=== PATIENT | male | born 1960 | race African-American/Black ===

== ENCOUNTER 2018-03-03 00:23 | Emergency (ER) | payer BC, OTHER ==
[2018-03-03] MEDS ORDERED: KETOROLAC 30 MG/ML INJ ONE (01:02)
[2018-03-03] MEDS ORDERED: LIDOCAINE 1% 20 ML MDV ONE (01:31)
--- NOTE | 2018-03-03 03:23 | EDPHYS ---
Physician Documentation [facility] Name: Milo Lynn Age: 57 yrs Sex: Male : 1960 Arrival Date: 03/03/2018 Time: 00:25 Bed 6 Private MD: ED Physician Greg Hidalgo HPI: 03/03 00:42 This 57 yrs old Black Male presents to ER via Wheelchair with complaints of Laceration, tw4 Fall Injury. 00:42 Details of fall: The patient fell from a height, truck. Onset: The symptoms/episode tw4 began/occurred just prior to arrival. Associated injuries: The patient sustained palmar aspect of middle phalanx of left ring finger and palmar aspect of middle phalanx of left middle finger, abrasion, laceration, 2 cm(s). Severity of symptoms: At their worst the symptoms were mild, in the emergency department the symptoms are unchanged. The patient has not experienced similar symptoms in the past. Historical: - Allergies: 00:43 No Known Allergies; lp1 - Home Meds: 00:43 Celebrex Oral [Active]; lp1 - PMHx: 00:43 None; lp1 - PSHx: 00:43 C4, 5, 6 fusion; lp1 - Immunization history:: Adult Immunizations up to date, Last tetanus immunization: up to date. - Social history:: Smoking status: Patient/guardian denies using tobacco. ROS: 00:42 Constitutional: Negative for fever, chills, and weight loss, Cardiovascular: Negative tw4 for chest pain, palpitations, and edema, Respiratory: Negative for shortness of breath, cough, wheezing, and pleuritic chest pain, Abdomen/GI: Negative for abdominal pain, nausea, vomiting, diarrhea, and constipation. 00:42 MS/extremity: Positive for injury or acute deformity, decreased range of motion, laceration. Exam: 00:42 Constitutional: This is a well developed, well nourished patient who is awake, alert, tw4 and in no acute distress. Head/Face: Normocephalic, atraumatic. Chest/axilla: Normal chest wall appearance and motion. Nontender with no deformity. No lesions are appreciated. Cardiovascular: Regular rate and rhythm with a normal S1 and S2. No gallops, murmurs, or rubs. Normal PMI, no JVD. No pulse deficits. Respiratory: Lungs have equal breath sounds bilaterally, clear to auscultation and percussion. No rales, rhonchi or wheezes noted. No increased work of breathing, no retractions or nasal flaring. Abdomen/GI: Soft, non-tender, with normal bowel sounds. No distension or tympany. No guarding or rebound. No evidence of tenderness throughout. 00:42 Back: pain, that is mild, of the right low back, ROM is decreased, with all movement, normal spinal alignment noted. Vital Signs: 00:41 BP 163 / 90; Pulse 76; Resp 18; Temp 98.1(TE); Pulse Ox 100% on R/A; Weight 102.06 kg; lp1 Height 6 ft. 2 in. (187.96 cm); Pain 8/10; 01:15 BP 139 / 79; Pulse 70; Resp 16; Pulse Ox 100% on R/A; lp1 02:16 BP 134 / 81; Pulse 63; Resp 18; Pulse Ox 100% on R/A; mg2 02:45 BP 143 / 87; Pulse 60; Resp 18; Pulse Ox 100% on R/A; lp1 00:41 Body Mass Index 28.89 (102.06 kg, 187.96 cm) lp1 Laceration: 03:26 Wound Repair of 3.0cm ( 1.2in ) subcutaneous laceration to palmar aspect of middle tw4 phalanx of left ring finger and palmar aspect of middle phalanx of left middle finger. Distal neuro/vascular/tendon intact. Anesthesia: Digital block administered with 1% lidocaine. Wound prep: Extensive cleansing. Skin closed with 4-0 Ethilon using interrupted sutures and sterile technique. Dressed with Bacitracin, 4x4's. Patient tolerated well. MDM: 00:27 Patient medically screened. tw4 03:26 Differential diagnosis: closed head injury, fracture, laceration, multiple trauma. Data tw4 reviewed: vital signs, nurses notes. Counseling: I had a detailed discussion with the patient and/or guardian regarding: the historical points, exam findings, and any diagnostic results supporting the discharge/admit diagnosis. Medication response: Toradol relieved patient's pain. The symptoms have resolved. Response to treatment: the patient's symptoms have markedly improved after treatment, and as a result, I will discharge patient. Special discussion: I discussed with the patient/guardian in detail that at this point there is no indication for admission to the hospital. It is understood, however, that if the symptoms persist or worsen the patient needs to return immediately for re-evaluation. 03/03 02:01 Order name: Lumbar Spine (3 Views) XRAY tw4 Administered Medications: 01:06 Drug: TORadol 60 mg Route: IM; Site: right gluteus; mg2 02:00 Follow up: Response: No adverse reaction lp1 02:10 Drug: Lidocaine (1 %) 1 vials Volume: 20 ml; Route: Infiltration; lp1 03:35 Drug: Clindamycin 300 mg Route: PO; lp1 03:42 Follow up: Response: Medication administered at discharge. lp1 Disposition: 03/03/18 03:22 Discharged to Home. Impression: Laceration of extensor muscle, fascia and tendon of left ring finger at forearm level, Laceration of extensor muscle, fascia and tendon of left middle finger at wrist and hand level, Contusion of left back wall of thorax. - Condition is Stable. - Discharge Instructions: Contusion, [id number], Back Pain, Adult, [id number], Laceration Care, Adult, Nhiu-to-[id number]. - Prescriptions for Cleocin 300 mg Oral Capsule - take 1 capsule by ORAL route every 6 hours for 10 days; 40 capsule. Ibuprofen 800 mg Oral Tablet - take 1 tablet by ORAL route every 8 hours As needed take with food; 30 tablet. - Medication Reconciliation Form, Thank You Letter, Antibiotic Education, Prescription Opioid Use form. - Follow up: Emergency Department; When: As needed; Reason: If symptoms return, Recheck today's complaints, Continuance of care, Re-evaluation by your physician. - Problem is new. - Symptoms have improved. Signatures: Dispatcher [employer] EDMS Jasmyne Polanco RN RN lp1 Greg Hidalgo MD MD tw4 Salvatore Roe RN RN mg2 Corrections: (The following items were deleted from the chart) 03:23 03:22 03/03/2018 03:22 Discharged to Home. Impression: Laceration of extensor muscle, tw4 fascia and tendon of left ring finger at forearm level; Laceration of extensor muscle, fascia and tendon of left middle finger at wrist and hand level. Condition is Stable. Forms are Medication Reconciliation Form, Thank You Letter, Antibiotic Education, Prescription Opioid Use. Follow up: Emergency Department; When: As needed; Reason: If symptoms return, Recheck today's complaints, Continuance of care, Re-evaluation by your physician. Problem is new. Symptoms have improved. tw4 03:43 03:23 03/03/2018 03:22 Discharged to Home. Impression: Laceration of extensor muscle, lp1 fascia and tendon of left ring finger at forearm level; Laceration of extensor muscle, fascia and tendon of left middle finger at wrist and hand level; Contusion of left back wall of thorax. Condition is Stable. Discharge Instructions: Contusion, Yytb-ox-Atoz, Back Pain, Adult, Sspg-gr-Oaal, Laceration Care, Adult, [id number]. Forms are Medication Reconciliation Form, Thank You Letter, Antibiotic Education, Prescription Opioid Use. Follow up: Emergency Department; When: As needed; Reason: If symptoms return, Recheck today's complaints, Continuance of care, Re-evaluation by your physician. Problem is new. Symptoms have improved. tw4
--- NOTE | 2018-03-03 03:23 | ER ---
Nurse's Notes [facility] Name: Milo Lynn Age: 57 yrs Sex: Male : 1960 Arrival Date: 03/03/2018 Time: 00:25 Bed 6 Private MD: Diagnosis: Laceration of extensor muscle, fascia and tendon of left ring finger at forearm level;Laceration of extensor muscle, fascia and tendon of left middle finger at wrist and hand level;Contusion of left back wall of thorax Presentation: 03/03 00:38 Presenting complaint: Patient states: Was helping move a fridge from back of truck, lp1 lost balance and fell backward, hitting back and head on concrete sidewalk, denies LOC; laceration to left middle finger, left 4th finger, pain to right mid back on breathing. Transition of care: patient was not received from another setting of care. Complicating Factors: There are no complicating factors for this patient. Onset of symptoms was March 02, 2018 at 23:30. Risk Assessment: Do you want to hurt yourself or someone else? Patient reports no desire to harm self or others. Initial Sepsis Screen: Does the patient meet any 2 criteria? No. Patient's initial sepsis screen is negative. Does the patient have a suspected source of infection? No. Patient's initial sepsis screen is negative. Care prior to arrival: None. 00:38 Method Of Arrival: Wheelchair lp1 00:38 Acuity: MARI 4 lp1 Historical: - Allergies: 00:43 No Known Allergies; lp1 - Home Meds: 00:43 Celebrex Oral [Active]; lp1 - PMHx: 00:43 None; lp1 - PSHx: 00:43 C4, 5, 6 fusion; lp1 - Immunization history:: Adult Immunizations up to date, Last tetanus immunization: up to date. - Social history:: Smoking status: Patient/guardian denies using tobacco. Screenin:46 Abuse screen: Denies threats or abuse. Denies injuries from another. Nutritional lp1 screening: No deficits noted. Tuberculosis screening: No symptoms or risk factors identified. Fall Risk None identified. Assessment: 00:43 General: Appears in no apparent distress. Behavior is appropriate for age. Pain: lp1 Complains of pain in right mid back, left ring finger, left middle finger and right elbow Pain currently is 8 out of 10 on a pain scale. Quality of pain is described as aching. Neuro: Level of Consciousness is awake, alert, obeys commands, Oriented to person, place, time, situation, Gait is steady, Pupils are PERRLA. Cardiovascular: Patient's skin is warm and dry. Respiratory: Respiratory effort is even, unlabored, Respiratory pattern is regular. GI: Abdomen is flat. : No signs and/or symptoms were reported regarding the genitourinary system. EENT: No signs and/or symptoms were reported regarding the EENT system. Derm: Skin is healthy with good turgor, Skin is dry, Skin is normal, Wound noted Wound is Abrasion to right elbow, lacerations to left middle finger, left ring finger. Musculoskeletal: Circulation, motion, and sensation intact. Injury Description: Laceration is contaminated, jagged, 0.5 to 2.5 cm long, not bleeding. 01:45 Reassessment: Patient appears in no apparent distress at this time. No changes from lp1 previously documented assessment. Patient and/or family updated on plan of care and expected duration. Pain level reassessed. Waiting for laceration repair. 02:45 Reassessment: Patient is alert, oriented x 3, equal unlabored respirations, skin lp1 warm/dry/pink. States pain to right mid back. Vital Signs: 00:41 BP 163 / 90; Pulse 76; Resp 18; Temp 98.1(TE); Pulse Ox 100% on R/A; Weight 102.06 kg; lp1 Height 6 ft. 2 in. (187.96 cm); Pain 8/10; 01:15 BP 139 / 79; Pulse 70; Resp 16; Pulse Ox 100% on R/A; lp1 02:16 BP 134 / 81; Pulse 63; Resp 18; Pulse Ox 100% on R/A; mg2 02:45 BP 143 / 87; Pulse 60; Resp 18; Pulse Ox 100% on R/A; lp1 00:41 Body Mass Index 28.89 (102.06 kg, 187.96 cm) lp1 ED Course: 00:25 Patient arrived in ED. ds1 00:27 Greg Hidalgo MD is Attending Physician. tw4 00:38 Jasmyne Polanco RN is Primary Nurse. lp1 00:41 Triage completed. lp1 00:41 Arm band placed on right wrist. lp1 00:47 Patient has correct armband on for positive identification. Placed in gown. Pulse ox lp1 on. NIBP on. 01:00 Wound care: to laceration located on left middle finger and left ring finger was lp1 cleaned with Hibiclens, irrigated with normal saline. 02:10 Assist provider with laceration repair on left ring finger and left middle finger that lp1 was 2.5 cm. or less using sutures. Set up tray. Performed by Greg Hidalgo MD. 02:12 Patient did not have IV access during this emergency room visit. lp1 03:03 Patient moved to radiology via wheelchair. kw 03:03 X-ray completed. Patient tolerated procedure well. kw 03:03 Patient moved back from radiology. kw 03:04 Radiology exam delayed due to pt getting stitches. kw 03:05 Lumbar Spine (3 Views) XRAY In Process Unspecified. EDMS Administered Medications: 01:06 Drug: TORadol 60 mg Route: IM; Site: right gluteus; mg2 02:00 Follow up: Response: No adverse reaction lp1 02:10 Drug: Lidocaine (1 %) 1 vials Volume: 20 ml; Route: Infiltration; lp1 03:35 Drug: Clindamycin 300 mg Route: PO; lp1 03:42 Follow up: Response: Medication administered at discharge. lp1 Outcome: 03:22 Discharge ordered by . tw4 03:43 Discharged to home ambulatory. lp1 03:43 Condition: good 03:43 Discharge instructions given to patient, Instructed on discharge instructions, follow up and referral plans. wound care, Demonstrated understanding of instructions, follow-up care, medications, Prescriptions given X 2. 03:43 Patient left the ED. lp1 Signatures: Dispatcher [employer] EDDC LyleJoleen ds1 Kelin Arevalo kw Jasmyne Polanco RN RN lp1 Greg Hidalgo MD MD tw4 Salvatore Roe RN RN mg2 Corrections: (The following items were deleted from the chart) 03:04 01:45 Reassessment: Patient appears in no apparent distress at this time. No changes lp1 from previously documented assessment. Patient and/or family updated on plan of care and expected duration. Pain level reassessed. lp1
[2018-03-03] MEDS ORDERED: CLINDAMYCIN HCL 150 MG CAP ONE (03:31)
--- NOTE | 2018-03-03 08:24 | RAD REPORT ---
EXAM DESCRIPTION: Lumbar Spine 3 Views CLINICAL HISTORY: Fall, back pain, radiculopathy. COMPARISON: 03/20/2016 FINDINGS: Vertebral body heights appear maintained. No compression fracture noted. Disc spaces are m aintained. Bridging osteophyte along the left noted at L2-3. Prominent facet hypertrophy is seen at L 4-5 and L5-S1. IMPRESSION: Prominent facet hypertrophy at L4-5 and L5-S1.
== END 2018-03-03 03:43 | disposition home or self-care (01) ==
LOC: ER 00:23
PROC: 0JQK0ZZ Repair Left Hand Subcutaneous Tissue and Fascia, Open Approach (ICD-10-PCS; principal; 2018-03-03)
DX: S56.426A Laceration of extensor muscle, fascia and tendon of left ring finger at forearm level, initial encounter (principal); S66.323A Laceration of extensor muscle, fascia and tendon of left middle finger at wrist and hand level, initial encounter; W17.89XA Other fall from one level to another, initial encounter
CPT/HCPCS: 72100; 96372; 99284

== ENCOUNTER 2019-02-08 15:30 | Emergency (ER) | payer BC ==
--- OUTSIDE RECORDS SUMMARY | 2019-02-08 15:33 | XMS REPORT | Summary of Care ---
:1960 Author Organization [facility] Address [address] [place] [id number]- Encounter HQ Manuel_hallie(FIN) [id number] Date(s): 08/02/16 - 08/04/[address] [address]- Discharge Disposition: Home or Self Care Attending Physician: Delta Dutta MD Admitting Physician: Delta Dutta MD Referring Physician: Sher Garcia MD Vital Signs Most recent to oldest 1 2 3 [Reference Range]: Height 187.96 cm (07/29/16 3:22 PM) Temperature Oral [96.4-99.1 98.1 DegF 99.2 DegF 99.3 DegF DegF] (08/04/16 12:17 PM) *HI* *HI* (08/04/16 8:07 AM) (08/04/16 3:45 AM) Blood Pressure 143/78 mmHg 144/78 mmHg 173/83 mmHg [90-140/60-90 mmHg] *HI* *HI* *HI* (08/04/16 12:17 PM) (08/04/16 8:07 AM) (08/04/16 3:45 AM) Respiratory Rate [14-20 18 BRMIN 18 BRMIN 19 BRMIN BRMIN] (08/04/16 12:17 PM) (08/04/16 8:07 AM) (08/04/16 3:45 AM) Peripheral Pulse Rate 72 bpm 77 bpm 83 bpm [60-100 bpm] (08/04/16 12:17 PM) (08/04/16 8:07 AM) (08/04/16 3:45 AM) Weight 111.364 kg (07/29/16 3:22 PM) Body Mass Index 31.52 m2 (07/29/16 3:22 PM) Problem List No data available for this section Allergies, Adverse Reactions, Alerts Substance Reaction Severity Status NKDA Active Medications 1/2NS + KCL 20mEq/L 1000ml (Premix) 1,000 mL 1,000 mL, Rate: 75 ml/hr, Infuse over: 13.3 hr, Route: IV, Dosing Weight 111.364 kg, Total Volume: 1,000, Start date: 08/02/16 17:16:00 CDT, Duration: 30 day, Stop date: 09/01/16 17:15:00 STORE RECEIVING SPECIALIST Notes: PREMIX IV - Do Not AlterWASTE: F/P - Sink; E - Municipal Trash Bin Start Date: 08/02/16 Stop Date: 08/03/16 Status: DiscontinuedamLODIPine 5 mg oral tablet 5 mg=1 tab, PO, Daily, # 15 tab, 0 Refill(s) Start Date: 08/04/16 Status: OrderedANES acetaminophen 1,000 mg, 2 tab, Route: PO, Drug form: TAB, ONCE, Dosing Weight 111.364, kg, PRN Pain Score 1-3, Start date: 08/02/16 16:29:00 CDT, Duration: 1 doses or times, Stop date: Limited # of times Notes: Max acetaminophen 4000 mg/day (4 gm/day). (Same as: Tylenol Extra Strength) Start Date: 08/02/16 Stop Date: 08/02/16 Status: DiscontinuedANES flumazenil 0.2 mg, 2 mL, Route: IVP, Drug form: INJ, PRN, Dosing Weight 111.364, kg, PRN Benzodiazepine Reversal, Initial dose, Start date: 08/02/16 16:29:00 CDT, Stop date: 08/02/16 23:00:00 CDT Notes: (Same as: Romazicon) Start Date: 08/02/16 Stop Date: 08/02/16 Status: DiscontinuedANES HYDROmorphone 0.5 mg, 0.5 mL, Route: IVP, Drug form: INJ, Q5Min, Dosing Weight 111.364, kg, PRN Pain Score 7-10, Start date: 08/02/16 16:29:00 CDT, Duration: 4 doses or times, Stop date: 08/02/16 23:00:00 CDT Start Date: 08/02/16 Stop Date: 08/02/16 Status: DiscontinuedANES labetalol 10 mg, 2 mL, Route: IVP, Drug form: INJ, Q5Min, Dosing Weight 111.364, kg, PRN Elevated BP, Start date: 08/02/16 16:29:00 CDT, Duration: 5 doses or times, Stop date: 08/02/16 23:00:00 CDT Notes: (Same as: Normodyne, Trandate)Push over 2 minutes Give bolus over 2-3 minutes. Start Date: 08/02/16 Stop Date: 08/02/16 Status: DiscontinuedANES morphine Sulfate 2 mg, 1 mL, Route: IVP, Drug form: INJ, Q5Min, Dosing Weight 111.364, kg, PRN Pain Score 4-6, Start date: 08/02/16 16:29:00 CDT, Duration: 5 doses or times, Stop date: 08/02/16 23:00:00 CDT Notes: (Same as:MORPhine Sulfate) Start Date: 08/02/16 Stop Date: 08/02/16 Status: DiscontinuedANES naloxone 0.4 mg, 1 mL, Route: IVP, Drug form: INJ, Q2MIN, Dosing Weight 111.364, kg, PRN Narcotic Reversal, Start date: 08/02/16 16:29:00 CDT, Duration: 8 doses or times , Stop date: 08/02/16 23:00:00 CDT Notes: Same as Narcan Start Date: 08/02/16 Stop Date: 08/02/16 Status: DiscontinuedANES ondansetron 4 mg, 2 mL, Route: IVP, Drug form: INJ, ONCE, Dosing Weight 111.364, kg, PRN Nausea & Vomiting, Start date: 08/02/16 16:29:00 CDT Notes: (Same as: Vinay) MEDICATION WASTE Product Size: 4 mgProduct Wasted: ___ mg Start Date: 08/02/16 Stop Date: 08/02/16 Status: Completedcarvedilol 12.5 mg, 1 tab, Route: PO, Drug form: TAB, Q12H, Dosing Weight 111.364, kg, Start date: 08/03/16 21:00:00 CDT, Duration: 30 day, Stop date: 09/02/16 9:00: 00 STORE RECEIVING SPECIALIST Notes: Give with food. (Same As: Coreg) Start Date: 08/03/16 Stop Date: 08/04/16 Status: DiscontinuedceFAZolin (SCIP) 2 gm, 100 mL, Route: IVPB, Drug form: INJ, Q8H, Dosing Weight 111.364, kg, Start date: 08/02/16 20:10:00 CDT, Duration: 24 hr, Stop date: 08/03/16 16:00: 00 CDT Notes: Same as: Ancef Start Date: 08/02/16 Stop Date: 08/03/16 Status: CompletedColace 100 mg oral capsule 100 mg=1 cap, PO, BID, # 60 cap, 1 Refill(s) Start Date: 08/04/16 Status: Ordereddexamethasone 4 mg, 1 tab, Route: PO, Drug form: TAB, Q8H, Start date: 08/04/16 8:00:00 CDT, Duration: 30 day, Stop date: 09/03/16 0:00:00 STORE RECEIVING SPECIALIST Notes: Give with food.(Same As: Decadron) Start Date: 08/04/16 Stop Date: 08/04/16 Status: Discontinueddexamethasone 4 mg, 1 mL, Route: IV, Drug form: INJ, Q6Hnow, Start date: 08/04/16 2:00:00 CDT , Duration: 30 day, Stop date: 09/02/16 20:00:00 STORE RECEIVING SPECIALIST Notes: Concentration: 4mg/ml Start Date: 08/04/16 Stop Date: 08/04/16 Status: Discontinueddocusate 100 mg, 1 cap, Route: PO, Drug form: CAP, BID, Dosing Weight 111.364, kg, Start date: 08/03/16 9:00:00 CDT, Duration: 30 day, Stop date: 09/01/16 17:00:00 STORE RECEIVING SPECIALIST Notes: (Same as: Colace) (Do Not Crush) Start Date: 08/03/16 Stop Date: 08/04/16 Status: DiscontinuedFlexeril 10 mg oral tablet 10 mg=1 tab, PO, TID, PRN for spasm, # 30 tab, 0 Refill(s) Start Date: 08/04/16 Stop Date: 08/19/16 Status: OrderedhydrALAZINE 10 mg, 0.5 mL, Route: IVP, Drug form: INJ, Q4H, PRN Other -See Comment, Start date: 08/03/16 13:02:00 CDT, Duration: 30 day, Stop date: 09/02/16 13:01:00 STORE RECEIVING SPECIALIST Notes: (Same as: Apresoline)Push over 5 minutes Start Date: 08/03/16 Stop Date: 08/04/16 Status: DiscontinuedLactated Ringers 1,000 mL 1,000 mL, Rate: 125 ml/hr, Infuse over: 8 hr, Route: IV, Dosing Weight 111.364 kg, Total Volume: 1,000, Start date: 08/02/16 16:29:00 CDT, Duration: 30 day, Stop date: 09/01/16 16:28:00 STORE RECEIVING SPECIALIST Start Date: 08/02/16 Stop Date: 08/02/16 Status: DiscontinuedMedrol Dosepak 4 mg oral tablet See Instructions, PO, Take by mouth as directed on label., X 6 day, # 1 Pack, 0 Refill(s) Start Date: 08/04/16 Stop Date: 08/10/16 Status: Orderedmorphine Sulfate 2 mg, 1 mL, Route: IVP, Drug form: INJ, Q2H, Dosing Weight 111.364, kg, PRN Pain Score 7-10, Start date: 08/02/16 17:16:00 CDT, Duration: 30 day, Stop date : 09/01/16 17:15:00 STORE RECEIVING SPECIALIST Notes: (Same as:MORPhine Sulfate) Start Date: 08/02/16 Stop Date: 08/04/16 Status: DiscontinuedNorco 10/325 oral tablet 1 tab, Route: PO, Drug Form: TAB, Dosing Weight 111.364, kg, Q4H, PRN Pain Score 4-6, Start date: 08/02/16 17:16:00 CDT, Duration: 30 day, Stop date: 09/01 17:15:00 STORE RECEIVING SPECIALIST Notes: Do not exceed 4gm/day of acetaminophen. (Same as: Huntley 325/10) Start Date: 08/02/16 Stop Date: 08/04/16 Status: DiscontinuedNorco 10/325 oral tablet 1 tab, Route: PO, Drug Form: TAB, Dosing Weight 111.364, kg, Q4H, PRN Pain Score 4-6, Start date: 08/02/16 17:16:00 CDT, Duration: 30 day, Stop date: 09/01 17:15:00 STORE RECEIVING SPECIALIST Start Date: 08/02/16 Stop Date: 08/02/16 Status: Discontinuedondansetron 4 mg, Route: IVP, Q6H, Dosing Weight 111.364, kg, PRN Nausea & Vomiting, Start date: 08/02/16 18:00:00 CDT, Duration: 30 day, Stop date: 09/01/16 17:59: 00 STORE RECEIVING SPECIALIST Start Date: 08/02/16 Stop Date: 08/02/16 Status: DiscontinuedTylenol with Codeine #4 oral tablet 1 tab, PO, Q4H, PRN Pain, X 7 day, # 42 tab, 0 Refill(s) Start Date: 08/04/16 Stop Date: 08/11/16 Status: OrderedZofran 4 mg, 2 mL, Route: IVP, Drug form: INJ, Q8H, Dosing Weight 111.364, kg, PRN Nausea, Start date: 08/02/16 17:16:00 CDT, Duration: 30 day, Stop date: 17:15:00 STORE RECEIVING SPECIALIST Notes: (Same as: Zofran) MEDICATION WASTE Product Size: 4 mgProduct Wasted: ___ mg Start Date: 08/02/16 Stop Date: 08/04/16 Status: DiscontinuedZofran 4 mg, 1 tab, Route: PO, Drug form: TAB, Q8H, Dosing Weight 111.364, kg, PRN Nausea, Start date: 08/02/16 17:16:00 CDT, Duration: 30 day, Stop date: 17:15:00 STORE RECEIVING SPECIALIST Notes: (Same as: Zofran) Start Date: 08/02/16 Stop Date: 08/04/16 Status: Discontinued Results BLOOD BANK RESULTS Most recent to oldest [Reference Range]: 1 2 3 ABO/Rh O POS *Unknown* (07/30/16 8:27 AM) Antibody Scrn Negative (07/30/16 8:27 AM) ELECTROLYTES Most recent to oldest 1 2 3 [Reference Range]: Sodium Lvl [135-145 mEq/L] 132 mEq/L 136 mEq/L 140 mEq/L *LOW* (08/03/16 4:25 AM) (07/30/16 8:27 AM) (08/04/16 5:10 AM) Potassium Lvl [3.5-5.1 4.2 mEq/L 4.5 mEq/L 1 4.2 mEq/L mEq/L] (08/04/16 5:10 AM) (08/03/16 4:25 AM) (07/30/16 8:27 AM) Chloride Lvl [95-109 mEq/L] 98 mEq/L 101 mEq/L 104 mEq/L (08/04/16 5:10 AM) (08/03/16 4:25 AM) (07/30/16 8:27 AM) CO2 [24-32 mEq/L] 25 mEq/L 27 mEq/L 30 mEq/L (08/04/16 5:10 AM) (08/03/16 4:25 AM) (07/30/16 8:27 AM) AGAP [10.0-20.0 mEq/L] 13.2 mEq/L 12.5 mEq/L 10.2 mEq/L (08/04/16 5:10 AM) (08/03/16 4:25 AM) (07/30/16 8:27 AM) 1Result Comment: Specimen Slightly Hemolyzed.CHEM PANEL Most recent to oldest 1 2 3 [Reference Range]: Creatinine Lvl [0.50-1.40 1.00 mg/dL 1.10 mg/dL 1.20 mg/dL mg/dL] (08/04/16 5:10 AM) (08/03/16 4:25 AM) (07/30/16 8:27 AM) eGFR 99 mL/min/1.73m2 1 88 mL/min/1.73m2 2 79 mL/min/1.73m2 3 *NA* *NA* *NA* (08/04/16 5:10 AM) (08/03/16 4:25 AM) (07/30/16 8:27 AM) BUN [7-22 mg/dL] 12 mg/dL 15 mg/dL 18 mg/dL (08/04/16 5:10 AM) (08/03/16 4:25 AM) (07/30/16 8:27 AM) B/C Ratio [6-25] 12 (08/04/16 5:10 AM) Glucose Lvl [70-99 mg/dL] 122 mg/dL 111 mg/dL 95 mg/dL *HI* *HI* (07/30/16 8:27 AM) (08/04/16 5:10 AM) (08/03/16 4:25 AM) Total Protein [6.4-8.4 7.6 g/dL g/dL] (08/04/16 5:10 AM) Albumin Lvl [3.5-5.0 g/dL] 3.6 g/dL (08/04/16 5:10 AM) Globulin [2.7-4.2 g/dL] 4.0 g/dL (08/04/16 5:10 AM) A/G Ratio [0.7-1.6] 0.9 (08/04/16 5:10 AM) Calcium Lvl [8.5-10.5 8.4 mg/dL 8.3 mg/dL 8.9 mg/dL mg/dL] *LOW* *LOW* (07/30/16 8:27 AM) (08/04/16 5:10 AM) (08/03/16 4:25 AM) Phosphorus [2.5-4.5 mg/dL] 2.6 mg/dL (08/04/16 5:10 AM) Magnesium Lvl [1.8-2.4 1.9 mg/dL mg/dL] (08/04/16 5:10 AM) ALT [0-65 unit/L] 23 unit/L (08/04/16 5:10 AM) AST [0-37 unit/L] 26 unit/L (08/04/16 5:10 AM) Alk Phos [39-136 unit/L] 49 unit/L (08/04/16 5:10 AM) Bili Total [0.2-1.3 mg/dL] 0.8 mg/dL (08/04/16 5:10 AM) 1Result Comment: The eGFR is calculated using the CKD-EPI formula. In most young , healthy individualsthe eGFR will be >90 mL/min/1.73m2. The eGFR declines with age. An eGFR of 60-89 may be normal in some populations, particularly the elderly, for whom the CKD-EPI formula has not been extensively validated. Use of the eGFR is not recommended in the following populations: Individuals with unstable creatinine concentrations, including patients and those with serious co-morbid conditions. Patients with extremes in muscle mass or diet. The data above are obtained from the National Kidney Disease Education Program ( NKDEP) which additionally recommends that when the eGFR is used in patients with extremes of body mass index for purposesof drug dosing, the eGFR should be multiplied by the estimated BMI.2Result Comment: The eGFR is calculated using the CKD-EPI formula. In most young, healthy individualsthe eGFR will be >90 mL/ min/1.73m2. The eGFR declines with age. An eGFR of 60-89 may be normal in some populations, particularly the elderly, for whom the CKD-EPI formula has not been extensively validated. Use of the eGFR is not recommended in the following populations: Individuals with unstable creatinine concentrations, including patients and those with serious co-morbid conditions. Patients with extremes in muscle mass or diet. The data above are obtained from the National Kidney Disease Education Program ( NKDEP) which additionally recommends that when the eGFR is used in patients with extremes of body mass index for purposesof drug dosing, the eGFR should be multiplied by the estimated BMI.3Result Comment: The eGFR is calculated using the CKD-EPI formula. In most young, healthy individualsthe eGFR will be >90 mL/ min/1.73m2. The eGFR declines with age. An eGFR of 60-89 may be normal in some populations, particularly the elderly, for whom the CKD-EPI formula has not been extensively validated. Use of the eGFR is not recommended in the following populations: Individuals with unstable creatinine concentrations, including patients and those with serious co-morbid conditions. Patients with extremes in muscle mass or diet. The data above are obtained from the National Kidney Disease Education Program ( NKDEP) which additionally recommends that when the eGFR is used in patients with extremes of body mass index for purposesof drug dosing, the eGFR should be multiplied by the estimated BMI.IMMUNOLOGY Most recent to oldest [Reference Range]: 1 2 3 HIV 1/2 Ab [Negative] Negative *NA* (07/30/16 8:27 AM) HEMATOLOGY Most recent to oldest 1 2 3 [Reference Range]: WBC [3.7-10.4 K/CMM] 8.2 K/CMM 8.5 K/CMM 5.1 K/CMM (08/04/16 5:10 AM) (08/03/16 4:25 AM) (07/30/16 8:27 AM) RBC [4.70-6.10 M/CMM] 4.61 M/CMM 4.78 M/CMM 4.98 M/CMM *LOW* (08/03/16 4:25 AM) (07/30/16 8:27 AM) (08/04/16 5:10 AM) Hgb [14.0-18.0 g/dL] 13.8 g/dL 14.0 g/dL 14.3 g/dL *LOW* (08/03/16 4:25 AM) (07/30/16 8:27 AM) (08/04/16 5:10 AM) Hct [42.0-54.0 %] 39.6 % 41.5 % 42.9 % *LOW* *LOW* (07/30/16 8:27 AM) (08/04/16 5:10 AM) (08/03/16 4:25 AM) MCV [80.0-94.0 fL] 85.8 fL 86.9 fL 86.1 fL (08/04/16 5:10 AM) (08/03/16 4:25 AM) (07/30/16 8:27 AM) MCH [27.0-31.0 pg] 29.8 pg 29.3 pg 28.8 pg (08/04/16 5:10 AM) (08/03/16 4:25 AM) (07/30/16 8:27 AM) MCHC [32.0-36.0 g/dL] 34.8 g/dL 33.7 g/dL 33.4 g/dL (08/04/16 5:10 AM) (08/03/16 4:25 AM) (07/30/16 8:27 AM) RDW [11.5-14.5 %] 13.0 % 12.7 % 12.9 % (08/04/16 5:10 AM) (08/03/16 4:25 AM) (07/30/16 8:27 AM) Platelet [133-450 K/CMM] 155 K/CMM 143 K/CMM 167 K/CMM (08/04/16 5:10 AM) (08/03/16 4:25 AM) (07/30/16 8:27 AM) MPV [7.4-10.4 fL] 9.3 fL 9.8 fL 9.4 fL (08/04/16 5:10 AM) (08/03/16 4:25 AM) (07/30/16 8:27 AM) Segs [45.0-75.0 %] 84.9 % 79.1 % 43.2 % *HI* *HI* *LOW* (08/04/16 5:10 AM) (08/03/16 4:25 AM) (07/30/16 8:27 AM) Lymphocytes [20.0-40.0 %] 9.2 % 13.0 % 47.0 % *LOW* *LOW* *HI* (08/04/16 5:10 AM) (08/03/16 4:25 AM) (07/30/16 8:27 AM) Monocytes [2.0-12.0 %] 5.6 % 7.8 % 7.4 % (08/04/16 5:10 AM) (08/03/16 4:25 AM) (07/30/16 8:27 AM) Eosinophils [0.0-4.0 %] 1.9 % (07/30/16 8:27 AM) Basophils [0.0-1.0 %] 0.3 % 0.1 % 0.5 % (08/04/16 5:10 AM) (08/03/16 4:25 AM) (07/30/16 8:27 AM) Segs-Bands # [1.5-8.1 7.0 K/CMM 6.7 K/CMM 2.2 K/CMM K/CMM] (08/04/16 5:10 AM) (08/03/16 4:25 AM) (07/30/16 8:27 AM) Lymphocytes # [1.0-5.5 0.8 K/CMM 1.1 K/CMM 2.4 K/CMM K/CMM] *LOW* (08/03/16 4:25 AM) (07/30/16 8:27 AM) (08/04/16 5:10 AM) Monocytes # [0.0-0.8 K/CMM] 0.5 K/CMM 0.7 K/CMM 0.4 K/CMM (08/04/16 5:10 AM) (08/03/16 4:25 AM) (07/30/16 8:27 AM) Eosinophils # [0.0-0.5 0.1 K/CMM K/CMM] (07/30/16 8:27 AM) Basophils # [0.0-0.2 K/CMM] 0.0 K/CMM (07/30/16 8:27 AM) PT [12.0-14.7 seconds] 13.9 seconds (07/30/16 8:27 AM) INR [0.85-1.17] 1.05 (07/30/16 8:27 AM) PTT [22.9-35.8 seconds] 31.1 seconds (07/30/16 8:27 AM) Immunizations No data available for this section Procedures Procedure Date Related Diagnosis Body Site Bunionectomy1 Fusion2 Hernia repair [id number] Social History Social History Type Response Substance Abuse Use: None. Alcohol Past Smoking Status Never smoker; Ready to change: No; Concerns about tobacco use in household: No; Exposure to Tobacco Smoke None; Cigarette Smoking Last 365 Days No; Reg Smoking Cessation Counseling No Assessment and Plan Extracted from: Title: Progress Note Author: Mauricio Banks MD Date: 08/03/16 Impression and Plan 1. Cervical radiculopathy, status post anterior cervical diskectomy and fusion. Cont pain control. Will defer postop management to neurosurgery. 2. Neck pain. Will cont aggressive pain control and monitor closely. 3. Elevated blood pressure, possibly reactive to pain. No previous hx of HTN. Start on BB. We will cont pain control. Monitor.
--- OUTSIDE RECORDS SUMMARY | 2019-02-08 15:33 | XMS REPORT | Continuity of Care Document ---
:1960 Author Organization Interface Problems Problem Status Onset Classification Date Comments Source Date Reported N/A Active [place] [id number] Medications Medication Details Route Status Patient Ordering Order Source Instructions Provider Date {21 See Active (Methylprednisolo Instructions, 2015 [facility] ne 4 MG Oral PO, Take by Tablet [Medrol]) mouth as } Pack [Medrol directed on Dosepak] label., X 6 day, # 1 Pack, 0 Refill(s) Docusate Sodium 100 mg=1 cap, Active 100 MG Oral PO, BID, # 60 2015 [facility] Capsule [Colace] cap, 1 Refill(s) Cyclobenzaprine 10 mg=1 tab, Active hydrochloride 10 PO, TID, PRN 2015 [facility] MG Oral Tablet for spasm, # 30 [Flexeril] tab, 0 Refill(s) Acetaminophen 300 1 tab, PO, Q4H, Active MG / Codeine PRN Pain, X 7 2015 [facility] Phosphate 60 MG day, # 42 tab, Oral Tablet 0 Refill(s) [Tylenol with Codeine #4] amLODIPine 5 mg 5 mg=1 tab, PO, Active oral tablet Daily, # 15 2015 [facility] tab, 0 Refill(s) dexamethasone 4 mg, 1 tab, Inactive Route: PO, Drug 2015 [facility] form: TAB, Q8H, Start date: 08/04/16 8:00:00 CDT, Duration: 30 day, Stop date: 09/03/16 0:00:00 CSTNotes: Give with food. (Same As: Decadron) dexamethasone 4 mg, 1 mL, Inactive Route: IV, Drug 2015 [facility] form: INJ, Q6Hnow, Start date: 08/04/16 2:00:00 CDT, Duration: 30 day, Stop date: 09/02/16 20:00:00 CSTNotes: Concentration: 4mg/ml carvedilol 12.5 mg, 1 tab, No Longer Route: PO, Drug Active 2015 [facility] form: TAB, Q12H, Dosing Weight 111.364, kg, Start date: 08/03/16 21:00:00 CDT, Duration: 30 day, Stop date: 09/02/16 9:00:00 CSTNotes: Give with food. (Same As: Coreg) hydrALAZINE 10 mg, 0.5 mL, No Longer Route: IVP, Active 2015 [facility] Drug form: INJ, Q4H, PRN Other -See Comment, Start date: 08/03/16 13:02:00 CDT, Duration: 30 day, Stop date: 09/02/16 13:01:00 CSTNotes: (Same as: Apresoline) Push over 5 minutes Docusate 100 mg, 1 cap, No Longer Route: PO, Drug Active 2015 [facility] form: CAP, BID, Dosing Weight 111.364, kg, Start date: 08/03/16 9:00:00 CDT, Duration: 30 day, Stop date: 09/01/16 17:00:00 CSTNotes: (Same as: Colace) (Do Not Crush) ceFAZolin (SCIP) 2 gm, 100 mL, No Longer Route: IVPB, Active 2015 [facility] Drug form: INJ, Q8H, Dosing Weight 111.364, kg, Start date: 08/02/16 20:10:00 CDT, Duration: 24 hr, Stop date: 08/03/16 16:00:00 CDTNotes: Same as: Ancef Ondansetron 4 mg, Route: Inactive IVP, Q6H, 2015 [facility] Dosing Weight 111.364, kg, PRN Nausea & Vomiting, Start date: 08/02/16 18:00:00 CDT, Duration: 30 day, Stop date: 09/01/16 17:59:00 AUDIO OPERATOR Morphine 2 mg, 1 mL, No Longer Route: IVP, Active 2015 [facility] Drug form: INJ, Q2H, Dosing Weight 111.364, kg, PRN Pain Score 7-10, Start date: 08/02/16 17:16:00 CDT, Duration: 30 day, Stop date: 09/01/16 17:15:00 CSTNotes: (Same as:MORPhine Sulfate) Zofran 4 mg, 2 mL, No Longer Route: IVP, Active 2015 [facility] Drug form: INJ, Q8H, Dosing Weight 111.364, kg, PRN Nausea, Start date: 08/02/16 17:16:00 CDT, Duration: 30 day, Stop date: 09/01/16 17:15:00 CSTNotes: (Same as: Zofran) MEDICATION WASTE Product Size: 4 mg Product Wasted: ___ mg Acetaminophen 325 1 tab, Route: No Longer MG / Hydrocodone PO, Drug Form: Active 2015 [facility] Bitartrate 10 MG TAB, Dosing Oral Tablet Weight 111.364, [[place] 10/325] kg, Q4H, PRN Pain Score 4-6, Start date: 08/02/16 17:16:00 CDT, Duration: 30 day, Stop date: 09/01/16 17:15:00 CSTNotes: Do not exceed 4gm/day of acetaminophen. (Same as: [place] 325/10) 1/2NS + KCL 1,000 mL, Rate: No Longer 20mEq/L 1000ml 75 ml/hr, Active 2015 [facility] (Premix) 1,000 mL Infuse over: 13.3 hr, Route: IV, Dosing Weight 111.364 kg, Total Volume: 1,000, Start date: 08/02/16 17:16:00 CDT, Duration: 30 day, Stop date: 09/01/16 17:15:00 CSTNotes: PREMIX IV - Do Not Alter WASTE: F/P - Sink; E - [employer] Ondansetron 4 mg, 2 mL, Inactive Route: IVP2015 [facility] Drug form: INJ, ONCE, Dosing Weight 111.364, kg, PRN Nausea & Vomiting, Start date: 08/02/16 16:29:00 CDTNotes: (Same as: Zofran) MEDICATION WASTE Product Size: 4 mg Product Wasted: ___ mg Naloxone 0.4 mg, 1 mL, Inactive Route: IVP2015 [facility] Drug form: INJ, Q2MIN, Dosing Weight 111.364, kg, PRN Narcotic Reversal, Start date: 08/02/16 16:29:00 CDT, Duration: 8 doses or times, Stop date: 08/02/16 23:00:00 CDTNotes: Same as Narcan Morphine 2 mg, 1 mL, Inactive Route: IVP2015 [facility] Drug form: INJ, Q5Min, Dosing Weight 111.364, kg, PRN Pain Score 4-6, Start date: 08/02/16 16:29:00 CDT, Duration: 5 doses or times, Stop date: 08/02/16 23:00:00 CDTNotes: (Same as:MORPhine Sulfate) Flumazenil 0.2 mg, 2 mL, Inactive Route: IVP2015 [facility] Drug form: INJ, PRN, Dosing Weight 111.364, kg, PRN Benzodiazepine Reversal, Initial dose, Start date: 08/02/16 16:29:00 CDT, Stop date: 08/02/16 23:00:00 CDTNotes: (Same as: Romazicon) Hydromorphone 0.5 mg, 0.5 mL, Inactive Route: IVP2015 [facility] Drug form: INJ, Q5Min, Dosing Weight 111.364, kg, PRN Pain Score 7-10, Start date: 08/02/16 16:29:00 CDT, Duration: 4 doses or times, Stop date: 08/02/16 23:00:00 CDT Acetaminophen 1,000 mg, 2 Inactive tab, Route: PO, 2015 [facility] Drug form: TAB, ONCE, Dosing Weight 111.364, kg, PRN Pain Score 1-3, Start date: 08/02/16 16:29:00 CDT, Duration: 1 doses or times, Stop date: Limited # of timesNotes: Max acetaminophen 4000 mg/day (4 gm/day). (Same as: Tylenol Extra Strength) Calcium Chloride 1,000 mL, Rate: Inactive 0.0014 MEQ/ML / 125 ml/hr, 2015 [facility] Potassium Infuse over: 8 Chloride 0.004 hr, Route: IV, MEQ/ML / Sodium Dosing Weight Chloride 0.103 111.364 kg, MEQ/ML / Sodium Total Volume: Lactate 0.028 1,000, Start MEQ/ML Injectable date: 08/02/16 Solution 16:29:00 CDT, Duration: 30 day, Stop date: 09/01/16 16:28:00 AUDIO OPERATOR Labetalol 10 mg, 2 mL, Inactive Route: IVP, 2015 [facility] Drug form: INJ, Q5Min, Dosing Weight 111.364, kg, PRN Elevated BP, Start date: 08/02/16 16:29:00 CDT, Duration: 5 doses or times, Stop date: 08/02/16 23:00:00 CDTNotes: (Same as: Normodyne, Trandate) Push over 2 minutes Give bolus over 2-3 minutes. Allergies, Adverse Reactions, Alerts Substance Category Reaction Severity Reaction Status Date Comments Source type Reported Immunizations Immunization Date Given Site Status Last Updated Comments Source Results Order Name Results Value Reference Date Interpretation Comments Source Range CHEM PANEL Magnesium 1.9 mg/dL 1.8 - 2.4 08/04 [facility] CHEM PANEL Phosphorus 2.6 mg/dL 2.5 - 4.5 08/04 [facility] CHEM PANEL Bili Total 0.8 mg/dL 0.2 - 1.3 08/04 [facility] CHEM PANEL Alk Phos 49 unit/L 39 - 136 08/04 [facility] CHEM PANEL eGFR 99 08/04 Result Comment: The eGFR is calculated using the CKD-EPI formula. In most young, healthy individuals the eGFR will be >90 mL/ min/1.73m2. The eGFR declines with age. An eGFR of 60-89 may be normal in mL/min/1. some populations, particularly the elderly, for whom the CKD-EPI formula has not been extensively validated. Use of the eGFR is not recommended in the following populations: [address] Individuals with unstable creatinine concentrations, including patients and those with serious co-morbid conditions. Patients with extremes in muscle mass or diet. The data above are obtained from the National Kidney Disease Education Program (NKDEP) which additionally recommends that when the eGFR is used in patients with extremes of body mass index for purposes of drug dosing, the eGFR should be multiplied by the estimated BMI. CHEM PANEL Glucose Lvl 122 mg/dL 70 - 99 08/04 [facility] CHEM PANEL CO2 25 meq/L 24 - 32 08/04 [facility] CHEM PANEL AST 26 unit/L 0 - 37 08/04 [facility] CHEM PANEL ALT 23 unit/L 0 - 65 08/04 [facility] CHEM PANEL Albumin Lvl 3.6 g/dL 3.5 - 5.0 08/04 [facility] CHEM PANEL Total 7.6 g/dL 6.4 - 8.4 08/04 [facility] CHEM PANEL Calcium Lvl 8.4 mg/dL 8.5 - 10.5 08/04 [facility] CHEM PANEL BUN 12 mg/dL 7 - 08/04 [facility] CHEM PANEL Creatinine 1.00 mg/dL 0.50 - 08/04 Lvl 1.40 [facility] CHEM PANEL Chloride Lvl 98 meq/L 95 - 109 08/04 [facility] CHEM PANEL Sodium Lvl 132 meq/L 135 - 145 08/04 [facility] CHEM PANEL Potassium 4.2 meq/L 3.5 - 5.1 08/04 Lvl [facility] CHEM PANEL AGAP 13.2 meq/L 10.0 - 08/04 20.0 [facility] CHEM PANEL A/G Ratio 0.9 0.7 - 1.6 08/04 [facility] CHEM PANEL B/C Ratio 12 6 - 25 08/04 [facility] CHEM PANEL Globulin 4.0 g/dL 2.7 - 4.2 08/04 [facility] HEMATOLOGY Monocytes 5.6 % 2.0 - 12.0 08/04 [facility] HEMATOLOGY Lymphocytes 9.2 % 20.0 - 08/04 40.0 [facility] HEMATOLOGY Segs 84.9 % 45.0 - 08/04 75.0 [facility] HEMATOLOGY Monocytes # 0.5 K/CMM 0.0 - 0.8 08/04 [facility] HEMATOLOGY Basophils 0.3 % 0.0 - 1.0 08/04 [facility] HEMATOLOGY Segs-Bands # 7.0 K/CMM 1.5 - 8.1 08/04 [facility] HEMATOLOGY Lymphocytes 0.8 K/CMM 1.0 - 5.5 08/04 MH /2015 [facility] HEMATOLOGY WBC 8.2 K/CMM 3.7 - 10.4 08/04 [facility] HEMATOLOGY RBC 4.61 M/CMM 4.70 - 08/04 6.10 [facility] HEMATOLOGY RDW 13.0 % 11.5 - 08/04 MH 14. [facility] HEMATOLOGY MCHC 34.8 g/dL 32.0 - 08/04 MH 36.0 [facility] HEMATOLOGY Platelet 155 K/CMM 133 - 450 08/04 [facility] HEMATOLOGY MPV 9.3 fL 7.4 - 10.4 08/04 [facility] HEMATOLOGY Hgb 13.8 g/dL 14.0 - 08/04 MH 18.0 [facility] HEMATOLOGY Hct 39.6 % 42.0 - 08/04 MH 54.0 [facility] HEMATOLOGY MCH 29.8 pg 27.0 - 08/04 MH 31.0 [facility] HEMATOLOGY MCV 85.8 fL 80.0 - 08/04 94.0 [facility] CHEM PANEL eGFR 88 08/03 Result Comment: The eGFR is calculated using the CKD-EPI formula. In most young, healthy individuals the eGFR will be >90 mL/ min/1.73m2. The eGFR declines with age. An eGFR of 60-89 may be normal in mL/min/1.7 some populations, particularly the elderly, for whom the CKD-EPI formula has not been extensively validated. Use of the eGFR is not recommended in the following populations: [facility] 3m2 Individuals with unstable creatinine concentrations, including patients and those with serious co-morbid conditions. Patients with extremes in muscle mass or diet. The data above are obtained from the National Kidney Disease Education Program (NKDEP) which additionally recommends that when the eGFR is used in patients with extremes of body mass index for purposes of drug dosing, the eGFR should be multiplied by the estimated BMI. CHEM PANEL Chloride Lvl 101 meq/L 95 - 109 08/03 [facility] CHEM PANEL Creatinine 1.10 mg/dL 0.50 - 08/03 MH Lvl 1.40 [facility] CHEM PANEL BUN 15 mg/dL 7 - 08/03 [facility] CHEM PANEL Calcium Lvl 8.3 mg/dL 8.5 - 10.5 08/03 [facility] CHEM PANEL CO2 27 meq/L 24 - 32 08/03 [facility] CHEM PANEL Potassium 4.5 meq/L 3.5 - 5.1 08/03 Result Lvl Comment: [facility] Specimen Slightly Hemolyzed. CHEM PANEL Sodium Lvl 136 meq/L 135 - 145 08/03 [facility] CHEM PANEL Glucose Lvl 111 mg/dL 70 - 99 08/03 [facility] CHEM PANEL AGAP 12.5 meq/L 10.0 - 08/03 MH 20.0 [facility] HEMATOLOGY Monocytes # 0.7 K/CMM 0.0 - 0.8 08/03 [facility] HEMATOLOGY Basophils 0.1 % 0.0 - 1.0 08/03 [facility] HEMATOLOGY Monocytes 7.8 % 2.0 - 12.0 08/03 [facility] HEMATOLOGY Lymphocytes 1.1 K/CMM 1.0 - 5.5 08/03 MH # /2015 [facility] HEMATOLOGY Segs-Bands # 6.7 K/CMM 1.5 - 8.1 08/03 [facility] HEMATOLOGY Lymphocytes 13.0 % 20.0 - 08/03 40.0 [facility] HEMATOLOGY Segs 79.1 % 45.0 - 08/03 75.0 [facility] HEMATOLOGY RBC 4.78 M/CMM 4.70 - 08/03 MH 6.10 [facility] HEMATOLOGY WBC 8.5 K/CMM 3.7 - 10.4 08/03 [facility] HEMATOLOGY Hct 41.5 % 42.0 - 08/03 54.0 [facility] HEMATOLOGY Hgb 14.0 g/dL 14.0 - 08/03 18.0 [facility] HEMATOLOGY MCH 29.3 pg 27.0 - 08/03 31.0 [facility] HEMATOLOGY MCV 86.9 fL 80.0 - 08/03 94.0 [facility] HEMATOLOGY Platelet 143 K/CMM 133 - 450 08/03 [facility] HEMATOLOGY RDW 12.7 % 11.5 - 08/03 14. [facility] MCHC 33.7 g/dL 32.0 - 08/03 MH 36.0 [facility] MPV 9.8 fL 7.4 - 10.4 08/03 [facility] Spine Spine Patient Name: KURTIS PETERS 08/02 - cervical 1 cervical - [facility] view DX view DX : 1960; Age: 55 years y/o Male MR: [id number] Read by: Ronni Cary MD Dictated Date/time: 08/02/16 16:41 Electronically Signed by: Ronni Cary MD 08/02/16 16:42 FINAL REPORT Study: Single lateral view of the cervical spine dated 08/02/2016 at 1605 hours. Clinical Indication: Pain, Cervical region; Comparison: 08/02/2016 1252 hours The lateral view visualizes to the bottom of C5. Patient is status post anterior fusion of C3-C5 with disc plugs at C3-C4 and C4-C5. No fracture or subluxation on this single view. SL: [id number] Spine Spine Patient Name: KURTIS PETERS 08/02 - cervical 1 cervical - [facility] view DX view DX : 1960; Age: 55 years y/o Male MR: [id number] Read by: Cody Salvador MD Dictated Date/time: 08/02/16 14:08 Electronically Signed by: Cody Salvador MD 08/02/16 14:10 FINAL REPORT Study: Spine cervical 1 view DX 08/02/2016 11:15 AM CDT Ordering Physician: MD Sher Garcia MD Clinical Indication: Pain, Cervical region; Comparison: None Single lateral view the cervical spine, intraoperative radiograph demonstrates metallic probe overlying the C3-C4 interspace. There are 2 lap sponges noted in the field. Report called to the operating room at the time of dictation. SL: [id number] BLOOD BANK Antibody Negative 07/30 RESULTS Scrn /2015 [facility] (07/30/16 8:27 AM) BLOOD BANK ABO/Rh O POS 07/30 RESULTS /2015 [facility] ELECTROLYT AGAP 10.2 meq/L 10.0 - 07/30 ES 20.0 [facility] ELECTROLYT eGFR 79 07/30 Result Comment: The eGFR is calculated using the CKD-EPI formula. In most young, healthy individuals the eGFR will be >90 mL/ min/1.73m2. The eGFR declines with age. An eGFR of 60-89 may be normal in ES mL/min/1.7 /2016 some populations, particularly the elderly, for whom the CKD-EPI formula has not been extensively validated. Use of the eGFR is not recommended in the following populations: [facility] 3m2 Individuals with unstable creatinine concentrations, including patients and those with serious co-morbid conditions. Patients with extremes in muscle mass or diet. The data above are obtained from the National Kidney Disease Education Program (NKDEP) which additionally recommends that when the eGFR is used in patients with extremes of body mass index for purposes of drug dosing, the eGFR should be multiplied by the estimated BMI. ELECTROLYT Calcium Lvl 8.9 mg/dL 8.5 - 10.5 07/30 ES [facility] ELECTROLYT Chloride Lvl 104 meq/L 95 - 109 07/30 ES [facility] ELECTROLYT Sodium Lvl 140 meq/L 135 - 145 07/30 ES [facility] ELECTROLYT Potassium 4.2 meq/L 3.5 - 5.1 07/30 ES Lvl /2015 [facility] ELECTROLYT CO2 30 meq/L 24 - 32 07/30 ES [facility] ELECTROLYT Creatinine 1.20 mg/dL 0.50 - 07/30 ES Lvl 1.40 [facility] ELECTROLYT BUN 18 mg/dL 7 - 22 07/30 ES [facility] ELECTROLYT Glucose Lvl 95 mg/dL 70 - 99 07/30 ES [facility] HEMATOLOGY PTT 31.1 s 22.9 - 07/30 35.8 /2015 [facility] HEMATOLOGY PT 13.9 s 12.0 - 07/30 14.7 [facility] HEMATOLOGY INR 1.05 0.85 - 07/30 MH 1.17 [facility] HEMATOLOGY Basophils # 0.0 K/CMM 0.0 - 0.2 07/30 [facility] HEMATOLOGY Eosinophils 0.1 K/CMM 0.0 - 0.5 07/30 MH # /2015 [facility] HEMATOLOGY Monocytes # 0.4 K/CMM 0.0 - 0.8 07/30 [facility] HEMATOLOGY Lymphocytes 47.0 % 20.0 - 07/30 MH 40.0 /2015 [facility] HEMATOLOGY Segs 43.2 % 45.0 - 07/30 MH 75.0 /2016 [facility] HEMATOLOGY Lymphocytes 2.4 K/CMM 1.0 - 5.5 07/30 MH # /2016 [facility] HEMATOLOGY Segs-Bands # 2.2 K/CMM 1.5 - 8.1 07/30 [facility] HEMATOLOGY Basophils 0.5 % 0.0 - 1.0 07/30 [facility] HEMATOLOGY Eosinophils 1.9 % 0.0 - 4.0 07/30 [facility] HEMATOLOGY Monocytes 7.4 % 2.0 - 12.0 07/30 [facility] HEMATOLOGY Hgb 14.3 g/dL 14.0 - 07/30 18.0 /2015 [facility] HEMATOLOGY Hct 42.9 % 42.0 - 07/30 54.0 /2015 [facility] HEMATOLOGY RBC 4.98 M/CMM 4.70 - 07/30 6.10 [facility] HEMATOLOGY MPV 9.4 fL 7.4 - 10.4 07/30 [facility] HEMATOLOGY RDW 12.9 % 11.5 - 07/30 14.5 [facility] HEMATOLOGY Platelet 167 K/CMM 133 - 450 10 [facility] HEMATOLOGY MCHC 33.4 g/dL 32.0 - 07/30 36.0 /2015 [facility] HEMATOLOGY MCH 28.8 pg 27.0 - 07/30 31.0 [facility] HEMATOLOGY MCV 86.1 fL 80.0 - 07/30 94.0 [facility] HEMATOLOGY WBC 5.1 K/CMM 3.7 - 10.4 07/30 [facility] IMMUNOLOGY HIV 1/2 Ab Negative Negative 07/30 [facility] *NA* (07/30/16 8:27 AM) Vital Signs Vital Sign Value Date Comments Source Systolic (mm Hg) 143 08/04/2016 [facility] Diastolic (mm Hg) 78 08/04/2016 [facility] Heart Rate 72 08/04/2016 [facility] Respitory Rate 18 08/04/2016 [facility] Temperature Oral (F) 98.1 F 08/04/2016 [facility] Systolic (mm Hg) 144 08/04/2016 [facility] Diastolic (mm Hg) 78 08/04/2016 [facility] Respitory Rate 18 08/04/2016 [facility] Heart Rate 77 08/04/2016 [facility] Temperature Oral (F) 99.2 F 08/04/2016 [facility] Temperature Oral (F) 99.3 F 08/04/2016 [facility] Respitory Rate 19 08/04/2016 [facility] Heart Rate 83 08/04/2016 [facility] Systolic (mm Hg) 173 08/04/2016 [facility] Diastolic (mm Hg) 83 08/04/2016 [facility] Weight 111.364 07/29/2016 [facility] BMI Calculated 31.52 07/29/2016 [facility] Height 187.96 cm 07/29/2016 [facility] Encounters Location Location Encounter Encounter Reason Attending ADM DC Status Source Details Type Number For Provider Date Date Visit [facility] [id number] [place] 08/02 08/04 [facility] Procedures Procedure Code Date Perfomer Comments Source Bunionectomy<sup [id number] RIGHT [facility] >1</sup> Fusion<sup>2</rm [id number] BACK [facility] p> Hernia repair [id number] [facility]
--- NOTE | 2019-02-08 16:14 | EDPHYS ---
Physician Documentation [facility] Name: Milo Lynn Age: 58 yrs Sex: Male : 1960 Arrival Date: 02/08/2019 Time: 15:31 Bed 9 Private MD: Ang Saunders ED Physician Raciel Valdez HPI: 02/08 16:16 This 58 yrs old Black Male presents to ER via Ambulatory with complaints of Neck Pain, jmm <24hrs Old. 16:16 The patient or guardian complains of pain. Onset: The symptoms/episode began/occurred jmm gradually, 2 day(s) ago. Associated signs and symptoms: Pertinent negatives: fever. The pain does not radiate. This is a 58 year old male with no known chronic medical conditions that presents to the ED with complaints of neck pain. Symptoms began this past after lifting a box. Patient states he injured his back as well. Patient used inversion table to relief of back pain and states he then wore a soft neck brace for 2 days. Neck pain worsened this past Friday with increased neck stiffness. Patient denies extremity weakness or radiated pain. Patient denies fever. . Historical: - Allergies: 15:53 No Known Allergies; aa5 - Home Meds: 15:53 None [Active]; aa5 - PMHx: 15:53 None; aa5 - PSHx: 15:52 C4, 5, 6 fusion; aa5 - Immunization history:: Flu vaccine is not up to date. - Social history:: Smoking status: Patient/guardian denies using tobacco. - Ebola Screening: : No symptoms or risks identified at this time. ROS: 16:16 Constitutional: Negative for fever, chills, and weight loss, Cardiovascular: Negative jmm for chest pain, palpitations, and edema, Respiratory: Negative for shortness of breath, cough, wheezing, and pleuritic chest pain. 16:16 Neck: Positive for pain with movement. 16:16 Neuro: Positive for headache. 16:16 All other systems are negative. Exam: 16:16 Constitutional: This is a well developed, well nourished patient who is awake, alert, jmm and in no acute distress. Head/Face: atraumatic. Eyes: EOMI, no conjunctival erythema appreciated ENT: Moist Mucus Membranes 16:16 Chest/axilla: Normal chest wall appearance and motion. Cardiovascular: Regular rate and rhythm. No edema appreciated Respiratory: Normal respirations, no respiratory distress appreciated Abdomen/GI: Non distended, soft Skin: General appearance color normal MS/ Extremity: Moves all extremities, no obvious deformities appreciated, no edema noted to the lower extremities Neuro: Awake and alert, normal gait Psych: Behavior is normal, Mood is normal, Patient is cooperative and pleasant 16:16 Neck: C-spine: appears grossly normal, ROM/movement: painful flexion and rotation, no midline tenderness, pain on palpation of the paraspinal region bilaterally. Vital Signs: 15:53 BP 132 / 75; Pulse 90; Resp 16 S; Temp 98.5(TE); Pulse Ox 97% on R/A; Weight 106.59 kg aa5 (R); Height 6 ft. 1 in. (185.42 cm) (R); Pain 9/10; 15:53 Body Mass Index 31.00 (106.59 kg, 185.42 cm) aa5 MDM: 16:13 Patient medically screened. [facility] 16:13 Data reviewed: vital signs, nurses notes. Counseling: I had a detailed discussion with arlene the patient and/or guardian regarding: the historical points, exam findings, and any diagnostic results supporting the discharge/admit diagnosis, the need for outpatient follow up, to return to the emergency department if symptoms worsen or persist or if there are any questions or concerns that arise at home. 16:16 ED course: Patient is alert and non toxic in appearance in the ED. Symptoms jmm inconsistent with SAH or meningitis. No extremity weakness, i do not currently suspect cord compression. symptoms appear consistent with muscle strain. patient advised to follow up with pcp closely or return to the ED if symptoms worsen. patient understood and agrees with the plan of care. . Administered Medications: No medications were administered Disposition: 02/09 10:06 Co-signature as Attending Physician, Raciel Valdez MD. Disposition: 02/08/19 16:14 Discharged to Home. Impression: Strain of muscle, fascia and tendon at neck level. - Condition is Stable. - Discharge Instructions: Muscle Strain. - Prescriptions for Ibuprofen 800 mg Oral Tablet - take 1 tablet by ORAL route every 8 hours As needed take with food; 30 tablet. Robaxin 500 mg Oral Tablet - take 2 tablet by ORAL route every 6 hours As needed; 40 tablet. - Work release form, Medication Reconciliation Form, Thank You Letter, Antibiotic Education, Prescription Opioid Use form. - Follow up: Ang Saunders MD; When: 2 - 3 days; Reason: Recheck today's complaints, Continuance of care, Re-evaluation by your physician. Signatures: Marce Meadows RN RN aj1 Cristino Yanes PA PA jmm Calderon, Audri, RN RN aa5 Raciel Valdez MD MD gs Corrections: (The following items were deleted from the chart) 02/08 16:37 16:14 02/08/2019 16:14 Discharged to Home. Impression: Strain of muscle, fascia and aj1 tendon at neck level. Condition is Stable. Forms are Medication Reconciliation Form, Thank You Letter, Antibiotic Education, Prescription Opioid Use. Follow up: Ang Saunders; When: 2 - 3 days; Reason: Recheck today's complaints, Continuance of care, Re-evaluation by your physician. ad
--- NOTE | 2019-02-08 16:14 | ER ---
Nurse's Notes [facility] Name: Milo Lynn Age: 58 yrs Sex: Male : 1960 Arrival Date: 02/08/2019 Time: 15:31 Bed 9 Private MD: Ang Saunders Diagnosis: Strain of muscle, fascia and tendon at neck level Presentation: 02/08 15:51 Presenting complaint: Patient states: "Last Friday I picked up a heavy package and aa5 the next day my back and neck were sore". Pt c/o neck pain. Transition of care: patient was not received from another setting of care. Onset of symptoms was January 2019. Risk Assessment: Do you want to hurt yourself or someone else? Patient reports no desire to harm self or others. Initial Sepsis Screen: Does the patient meet any 2 criteria? No. Patient's initial sepsis screen is negative. Does the patient have a suspected source of infection? No. Patient's initial sepsis screen is negative. Care prior to arrival: None. 15:51 Method Of Arrival: Ambulatory aa5 15:51 Acuity: MARI 4 aa5 Historical: - Allergies: 15:53 No Known Allergies; aa5 - Home Meds: 15:53 None [Active]; aa5 - PMHx: 15:53 None; aa5 - PSHx: 15:52 C4, 5, 6 fusion; aa5 - Immunization history:: Flu vaccine is not up to date. - Social history:: Smoking status: Patient/guardian denies using tobacco. - Ebola Screening: : No symptoms or risks identified at this time. Screenin:14 Abuse screen: Denies threats or abuse. Denies injuries from another. Nutritional aj1 screening: No deficits noted. Tuberculosis screening: No symptoms or risk factors identified. Fall Risk None identified. Assessment: 16:14 General: Appears in no apparent distress. Behavior is calm, cooperative, appropriate aj1 for age. Pain: Complains of pain in back and neck. Neuro: Level of Consciousness is awake, alert, obeys commands. Cardiovascular: Patient's skin is warm and dry. Respiratory: Airway is patent Respiratory effort is even, unlabored, Respiratory pattern is regular, symmetrical. GI: No signs and/or symptoms were reported involving the gastrointestinal system. : No signs and/or symptoms were reported regarding the genitourinary system. EENT: No signs and/or symptoms were reported regarding the EENT system. Derm: No signs and/or symptoms reported regarding the dermatologic system. Skin is pink, warm \\T\\ dry. normal. Musculoskeletal: Range of motion: intact in all extremities. Vital Signs: 15:53 BP 132 / 75; Pulse 90; Resp 16 S; Temp 98.5(TE); Pulse Ox 97% on R/A; Weight 106.59 kg aa5 (R); Height 6 ft. 1 in. (185.42 cm) (R); Pain 9/10; 15:53 Body Mass Index 31.00 (106.59 kg, 185.42 cm) aa5 ED Course: 15:31 Patient arrived in ED. as 15:31 Ang Saunders MD is Private Physician. as 15:51 Arm band placed on. aa5 15:52 Triage completed. aa5 16:00 [facility] 16:01 Raciel Valdez MD is Attending Physician. [facility] 16:06 Marce Meadows, RN is Primary Nurse. aj 16:14 Ang Saunders MD is Referral Physician. [facility] 16:14 Patient has correct armband on for positive identification. Bed in low position. Call aj1 light in reach. 16:14 No provider procedures requiring assistance completed. Patient did not have IV access aj1 during this emergency room visit. Administered Medications: No medications were administered Outcome: 16:14 Discharge ordered by MD. [facility] 16:36 Discharged to home ambulatory. aj 16:36 Condition: good 16:36 Discharge instructions given to patient, Instructed on discharge instructions, follow up and referral plans. medication usage, Demonstrated understanding of instructions, follow-up care, medications, Prescriptions given X 2. 16:37 Patient left the ED. aj1 Signatures: Marce Meadows RN RN aj Cristino Yanes PA PA jmm Martinez, Amelia as Calderon, Audri, RN RN aa5 Corrections: (The following items were deleted from the chart) 15:55 15:53 106.59 kg Reported; Height 6 ft. 1 in. Reported; BMI: 31.0; Pain 9/10; aa5 aa5
== END 2019-02-08 16:37 | disposition home or self-care (01) ==
LOC: ER 15:30
DX: S16.1XXA Strain of muscle, fascia and tendon at neck level, initial encounter (principal); X50.0XXA Overexertion from strenuous movement or load, initial encounter; Y93.89 Activity, other specified; Y92.9 Unspecified place or not applicable

== ENCOUNTER 2020-07-27 06:20 | Emergency (ER) | payer BC ==
--- OUTSIDE RECORDS SUMMARY | 2020-07-27 06:22 | XMS REPORT | Continuity of Care Document ---
:1960 Author Organization [facility] Care Team Providers Name Role Phone [facility] Unavailable Un available Problems Problem Status Onset Classification Date Comments Sourc e Date Reported N/A Active [facility] 6 Medications Medication Details Route Status Patient Ordering Order Source Instructions Provider Date {21 See Active (Methylprednisolo Instructions, 2015 [facility] ne 4 MG Oral PO, Take by Tablet [Medrol]) mouth as } Pack [Medrol directed on Dosepak] label., X 6 day, # 1 Pack, 0 Refill(s) Docusate Sodium 100 mg = 1 cap, Active 100 MG Oral PO, BID, # 60 2015 [facility] est Capsule [Colace] cap, 1 Refill(s) Cyclobenzaprine 10 mg = 1 tab, Active H hydrochloride 10 PO, TID, PRN 2015 [facility] MG Oral Tablet for spasm, # 30 [Flexeril] tab, 0 Refill(s) Acetaminophen 300 1 tab, PO, Q4H, Active MG / Codeine PRN Pain, X [address] [facility] Phosphate 60 MG day, # 42 tab, Oral Tablet 0 Refill(s) [Tylenol with Codeine #4] amLODIPine 5 mg 5 mg = 1 tab, Active oral tablet PO, Daily, # 15 2015 [facility] tab, 0 Refill(s) dexamethasone Notes: Give Inactive with food. 2015 (Same As: Decadron) dexamethasone Notes: Inactive Concentration: 2015 4mg/ml carvedilol Notes: Give No Longer with food. Active 2015 (Same As: Coreg) hydrALAZINE Notes: (Same No Longer as: Apresoline) Active 2015 t Push over 5 minutes Docusate Notes: (Same No Longer as: Colace) (Do Active 2015 t Not Crush) ceFAZolin (SCIP) Notes: Same as: No Longer 08/03 Ancef Active 2015 [facility] Ondansetron 4 mg, Route: Inactive IVP, Q6H, 2015 [facility] Dosing Weight 111.364, kg, PRN Nausea & Vomiting, Start date: 08/02/16 18:00:00 CDT, Duration: 30 day, Stop date: 09/01/16 17:59:00 RADIOLOGIST PHYSICIAN Morphine Notes: (Same No Longer as:MORPhine Active 2015 [facility] Sulfate) Zofran Notes: (Same No Longer as: Zofran) Active 2015 [facility] MEDICATION WASTE Product Size: 4 mg Product Wasted: ___ mg Acetaminophen 325 Notes: Do not No Longer MG / Hydrocodone exceed 4gm/day Active 2015 [facility] Bitartrate 10 MG of Oral Tablet acetaminophen. [Tebbetts 10325] (Same as: Tebbetts 325/10) 1/2NS + KCL Notes: PREMIX No Longer 20mEq/L 1000ml IV - Do Not Active 2015 [facility] (Premix) 1,000 mL Alter WASTE: F/P - Sink; E - [employer] Ondansetron Notes: (Same Inactive as: Zofran) 2015 [facility] MEDICATION WASTE Product Size: 4 mg Product Wasted: ___ mg Naloxone Notes: Same as Inactive Narcan 2015 [facility] Morphine Notes: (Same Inactive as:MORPhine 2015 [facility] Sulfate) Flumazenil Notes: (Same Inactive as: Romazicon) 2015 [facility] Hydromorphone 0.5 mg, 0.5 mL, Inactive H Route: IVP, 2015 [facility] Drug form: INJ, Q5Min, Dosing Weight 111.364, kg, PRN Pain Score 7-10, Start date: 08/02/16 16:29:00 CDT, Duration: 4 doses or times, Stop date: 08/02/16 23:00:00 CDT Acetaminophen Notes: Max Inactive acetaminophen 2015 [facility] 4000 mg/day (4 gm/day). (Same as: Tylenol Extra Strength) Calcium Chloride 1,000 mL, Rate: Inactive 0.0014 MEQ/ML / 125 ml/hr, 2015 [facility] Potassium Infuse over: 8 Chloride 0.004 hr, Route: IV, MEQ/ML / Sodium Dosing Weight Chloride 0.103 111.364 kg, MEQ/ML / Sodium Total Volume: Lactate 0.028 1,000, Start MEQ/ML Injectable date: 08/02/16 Solution 16:29:00 CDT, Duration: 30 day, Stop date: 09/01/16 16:28:00 RADIOLOGIST PHYSICIAN Labetalol Notes: (Same Inactive as: Normodyne, 2015 [facility] Trandate) Push over 2 minutes Give bolus over 2-3 minutes. Allergies, Adverse Reactions, Alerts No Known Medication Allergies Immunizations No Data Provided for This Section Results Order Name Results Value Reference Date Interpretation Comments Soledad rce Range CHEM PANEL Magnesium 1.9 1.8 - 2.4 08/04 [facility] CHEM PANEL Phosphorus 2.6 2.5 - 4.5 08/04 [facility] CHEM PANEL Bili Total 0.8 0.2 - 1.3 08/04 [facility] CHEM PANEL Alk Phos 49 39 - 136 08/04 [facility] CHEM PANEL eGFR 99 08/04 [facility] Comment: The [facility] eGFR is calculated using the CKD-EPI formula. In most young, healthy individuals the eGFR will be >90 mL/min/1.73m2 . The eGFR declines with age. An eGFR of 60-89 may be normal in some populations, particularly the elderly, for whom the CKD-EPI formula has not been extensively validated. Use of the eGFR is not recommended in the following populations:< br/>
Annalisa viduals with unstable creatinine concentration s, including patients and those with serious co-morbid conditions.<b r/>
Patie nts with extremes in muscle mass or diet.

The data above are obtained from the National Kidney Disease Education Program (NKDEP) which additionally recommends that when the eGFR is used in patients with extremes of body mass index for purposes of drug dosing, the eGFR should be multiplied by the estimated BMI. CHEM PANEL Glucose Lvl 122 70 - 99 08/04 [facility] CHEM PANEL CO2 25 24 - 32 08/04 [facility] CHEM PANEL AST 26 0 - 37 08/04 [facility] CHEM PANEL ALT 23 0 - 65 08/04 [facility] CHEM PANEL Albumin Lvl 3.6 3.5 - 5.0 08/04 [facility] CHEM PANEL Total 7.6 6.4 - 8.4 08/04 [facility] CHEM PANEL Calcium Lvl 8.4 8.5 - 10.5 08/04 [facility] CHEM PANEL BUN 12 7 - 22 08/04 [facility] CHEM PANEL Creatinine 1.00 0.50 - 08/04 MH Lvl 1.40 /2015 [facility] CHEM PANEL Chloride Lvl 98 95 - 109 08/04 [facility] CHEM PANEL Sodium Lvl 132 135 - 145 08/04 [facility] CHEM PANEL Potassium 4.2 3.5 - 5.1 08/04 Lvl /2015 [facility] CHEM PANEL AGAP 13.2 10.0 - 08/04 20.0 [facility] CHEM PANEL A/G Ratio 0.9 0.7 - 1.6 08/04 [facility] CHEM PANEL B/C Ratio 12 6 - 25 08/04 [facility] CHEM PANEL Globulin 4.0 2.7 - 4.2 08/04 [facility] HEMATOLOGY Monocytes 5.6 2.0 - 12.0 08/04 [facility] HEMATOLOGY Lymphocytes 9.2 20.0 - 08/04 40.0 [facility] HEMATOLOGY Segs 84.9 45.0 - 08/04 75.0 [facility] HEMATOLOGY Monocytes # 0.5 0.0 - 0.8 08/04 [facility] HEMATOLOGY Basophils 0.3 0.0 - 1.0 08/04 [facility] HEMATOLOGY Segs-Bands # 7.0 1.5 - 8.1 08/04 [facility] HEMATOLOGY Lymphocytes 0.8 1.0 - 5.5 08/04 # /2015 [facility] HEMATOLOGY WBC 8.2 3.7 - 10.4 08/04 [facility] HEMATOLOGY RBC 4.61 4.70 - 08/04 MH 6.10 [facility] HEMATOLOGY RDW 13.0 11.5 - 08/04 14. [facility] HEMATOLOGY MCHC 34.8 32.0 - 08/04 36.0 [facility] HEMATOLOGY Platelet 155 133 - 450 08/04 [facility] HEMATOLOGY MPV 9.3 7.4 - 10.4 08/04 [facility] HEMATOLOGY Hgb 13.8 14.0 - 08/04 MH 18.0 [facility] HEMATOLOGY Hct 39.6 42.0 - 08/04 MH 54.0 [facility] HEMATOLOGY MCH 29.8 27.0 - 08/04 MH 31.0 [facility] HEMATOLOGY MCV 85.8 80.0 - 08/04 MH 94.0 [facility] CHEM PANEL eGFR 88 08/03 Result Comment: The [facility] eGFR is calculated using the CKD-EPI formula. In most young, healthy individuals the eGFR will be >90 mL/min/1.73m2 . The eGFR declines with age. An eGFR of 60-89 may be normal in some populations, particularly the elderly, for whom the CKD-EPI formula has not been extensively validated. Use of the eGFR is not recommended in the following populations:< br/>
Annalisa viduals with unstable creatinine concentration s, including patients and those with serious co-morbid conditions.<b r/>
Patie nts with extremes in muscle mass or diet.

The data above are obtained from the National Kidney Disease Education Program (NKDEP) which additionally recommends that when the eGFR is used in patients with extremes of body mass index for purposes of drug dosing, the eGFR should be multiplied by the estimated BMI. CHEM PANEL Chloride Lvl 101 95 - 109 08/03 [facility] CHEM PANEL Creatinine 1.10 0.50 - 08/03 Lvl 1.40 [facility] CHEM PANEL BUN 15 7 - 22 08/03 [facility] CHEM PANEL Calcium Lvl 8.3 8.5 - 10.5 08/03 [facility] CHEM PANEL CO2 27 24 - 32 08/03 [facility] CHEM PANEL Potassium 4.5 3.5 - 5.1 08/03 Result Lvl /2015 Comment: [facility] Specimen Slightly Hemolyzed. CHEM PANEL Sodium Lvl 136 135 - 145 08/03 [facility] CHEM PANEL Glucose Lvl 111 70 - 99 08/03 [facility] CHEM PANEL AGAP 12.5 10.0 - 08/03 MH 20. [facility] HEMATOLOGY Monocytes # 0.7 0.0 - 0.8 08/03 [facility] HEMATOLOGY Basophils 0.1 0.0 - 1.0 08/03 [facility] HEMATOLOGY Monocytes 7.8 2.0 - 12.0 08/03 /2015 [facility] HEMATOLOGY Lymphocytes 1.1 1.0 - 5.5 08/03 MH # /2016 [facility] HEMATOLOGY Segs-Bands # 6.7 1.5 - 8.1 08/03 /2015 [facility] Lymphocytes 13.0 20.0 - 08/03 MH 40.0 /2015 [facility] HEMATOLOGY Segs 79.1 45.0 - 08/03 MH 75.0 /2015 [facility] HEMATOLOGY RBC 4.78 4.70 - 08/03 MH 6.10 [facility] HEMATOLOGY WBC 8.5 3.7 - 10.4 08/03 /2015 [facility] HEMATOLOGY Hct 41.5 42.0 - 08/03 MH 54.0 /2015 [facility] HEMATOLOGY Hgb 14.0 14.0 - 08/03 MH 18.0 [facility] MCH 29.3 27.0 - 08/03 MH 31.0 [facility] HEMATOLOGY MCV 86.9 80.0 - 08/03 MH 94.0 /2015 [facility] Platelet 143 133 - 450 08/03 /2015 [facility] HEMATOLOGY RDW 12.7 11.5 - 08/03 MH 14.5 [facility] MCHC 33.7 32.0 - 08/03 MH 36.0 [facility] MPV 9.8 7.4 - 10.4 08/03 /2015 [facility] BLOOD BANK Antibody Negative 07/30 RESULTS Scrn (07/30/16 8:27 AM) /2015 [facility] BLOOD BANK ABO/Rh O POS 07/30 RESULTS /2015 [facility] ELECTROLYTE AGAP 10.2 10.0 - 07/30 S 20.0 [facility] ELECTROLYTE eGFR 79 07/30 Result S /2015 Comment: The [facility] eGFR is calculated using the CKD-EPI formula. In most young, healthy individuals the eGFR will be >90 mL/min/1.73m2 . The eGFR declines with age. An eGFR of 60-89 may be normal in some populations, particularly the elderly, for whom the CKD-EPI formula has not been extensively validated. Use of the eGFR is not recommended in the following populations:< br/>
Annalisa viduals with unstable creatinine concentration s, including patients and those with serious co-morbid conditions.<b r/>
Patie nts with extremes in muscle mass or diet.

The data above are obtained from the National Kidney Disease Education Program (NKDEP) which additionally recommends that when the eGFR is used in patients with extremes of body mass index for purposes of drug dosing, the eGFR should be multiplied by the estimated BMI. ELECTROLYTE Calcium Lvl 8.9 8.5 - 10.5 18 MH S /2015 [facility] ELECTROLYTE Chloride Lvl 104 95 - 109 07/30 MH S /2015 [facility] ELECTROLYTE Sodium Lvl 140 135 - 145 18 MH S /2015 [facility] ELECTROLYTE Potassium 4.2 3.5 - 5.1 1018 MH S Lvl /2016 [facility] ELECTROLYTE CO2 30 24 - 32 10 MH S /2015 [facility] ELECTROLYTE Creatinine 1.20 0.50 - 07/30 MH S Lvl 1.40 /2015 [facility] ELECTROLYTE BUN 18 7 - 22 07/30 MH S /2015 [facility] ELECTROLYTE Glucose Lvl 95 70 - 99 07/30 MH S /2015 [facility] HEMATOLOGY PTT 31.1 22.9 - 07/30 MH 35.8 /2015 [facility] HEMATOLOGY PT 13.9 12.0 - 07/30 MH 14.7 /2015 [facility] HEMATOLOGY INR 1.05 0.85 - 07/30 MH 1.17 /2015 [facility] HEMATOLOGY Basophils # 0.0 0.0 - 0.2 07/30 /2015 [facility] HEMATOLOGY Eosinophils 0.1 0.0 - 0.5 07/30 MH # /2016 [facility] HEMATOLOGY Monocytes # 0.4 0.0 - 0.8 07/30 MH /2015 [facility] HEMATOLOGY Lymphocytes 47.0 20.0 - 07/30 MH 40.0 /2015 [facility] HEMATOLOGY Segs 43.2 45.0 - 07/30 MH 75.0 /2016 [facility] HEMATOLOGY Lymphocytes 2.4 1.0 - 5.5 18 MH # /2016 [facility] HEMATOLOGY Segs-Bands # 2.2 1.5 - 8.1 07/30 /2015 [facility] HEMATOLOGY Basophils 0.5 0.0 - 1.0 07/30 MH /2015 [facility] HEMATOLOGY Eosinophils 1.9 0.0 - 4.0 07/30 MH /2015 [facility] HEMATOLOGY Monocytes 7.4 2.0 - 12.0 07/30 /2015 [facility] HEMATOLOGY Hgb 14.3 14.0 - 07/30 MH 18.0 /2015 [facility] HEMATOLOGY Hct 42.9 42.0 - 07/30 MH 54.0 /2016 [facility] HEMATOLOGY RBC 4.98 4.70 - 07/30 MH 6.10 [facility] HEMATOLOGY MPV 9.4 7.4 - 10.4 07/30 [facility] HEMATOLOGY RDW 12.9 11.5 - 07/30 14. [facility] HEMATOLOGY Platelet 167 133 - 450 07/30 [facility] HEMATOLOGY MCHC 33.4 32.0 - 07/30 36.0 [facility] HEMATOLOGY MCH 28.8 27.0 - 07/30 31.0 [facility] HEMATOLOGY MCV 86.1 80.0 - 07/30 94.0 [facility] HEMATOLOGY WBC 5.1 3.7 - 10.4 07/30 [facility] IMMUNOLOGY HIV 1/2 Ab Negative Negative 07/30 *NA* /2015 [facility] (07/30/16 8:27 AM) Pathology Reports No Data Provided for This Section Diagnostic Reports Report Value Date Source Spine cervical 1 view Patient Name: KURTIS PETERS 08/02/2016 [facility] DX : 1960; Age: 55 years y/o Male MR: [id number] Study: Single lateral view o f the cervical spine dated 08/02/2016 at 1605 hours. Clinical Indication: Pain, Cervical region; Comparison: 08/02/2016 1252 hours The lateral view visualizes to the bottom of C5. Patient is status post anterior fusion of C3-C5 with disc plugs at C3-C4 and C4-C5. No fracture or subluxation on this single view. SL: [id number] Spine cervical 1 view Patient Name: KURTIS PETERS 08/02/2016 [facility] DX : 1960; Age: 55 years y/o Male MR: [id number] Study: Spine cervical 1 view DX 08/02/2016 11:15 AM CDT Ordering Physician: MD Sher Garcia MD Clinical Indication: Pain, Cervical region; Comparison: None Single lateral view the cerv ical spine, intraoperative radiograph demonstrates metallic probe overlying the C3-C4 interspace. There are 2 lap sponges noted in the field. Report called to the operating room at the time of dictation. SL: [id number] Consultation Notes No Data Provided for This Section Discharge Summaries No Data Provided for This Section History and Physicals No Data Provided for This Section Vital Signs Vital Sign Value Date Comments Source Systolic (mm Hg) 143 08/04/2016 [facility] t Diastolic (mm Hg) 78 08/04/2016 [facility] Heart Rate 72 08/04/2016 [facility] Respitory Rate 18 08/04/2016 [facility] Temperature Oral (F) 98.1 F 08/04/2016 [facility] Systolic (mm Hg) 144 08/04/2016 [facility] t Diastolic (mm Hg) 78 08/04/2016 [facility] Respitory Rate 18 08/04/2016 [facility] Heart Rate 77 08/04/2016 [facility] Temperature Oral (F) 99.2 F 08/04/2016 [facility] Temperature Oral (F) 99.3 F 08/04/2016 [facility] Respitory Rate 19 08/04/2016 [facility] Heart Rate 83 08/04/2016 [facility] Systolic (mm Hg) 173 08/04/2016 [facility] Diastolic (mm Hg) 83 08/04/2016 [facility] Weight 111.364 07/29/2016 [facility] BMI Calculated 31.52 07/29/2016 [facility] Height 187.96 cm 07/29/2016 [facility] Encounters Location Location Encounter Encounter Reason Attending ADM NM Stat us Source Details Type Number For Provider Date Date Visit [facility] [id number] [facility] 08/02 08/04 [facility] Outpatient Tra [facility] Procedures Procedure Code Date Perfomer Comments Source Bunionectomy<sup [id number] RIGHT [facility] >1</sup> Fusion<sup>2</rm [id number] BACK [facility] p> Hernia repair [id number] [facility] Assessment and Plan Assessment and Plan Date Source Extracted from:Title: Progress Note 08/04/2016 [facility] Author: Mauricio Banks MD Date: 08/03/16 Impression and Plan 1. Cervical radiculopathy, status post anterior cervical diskectomy and fusion. Cont pain control. Will defer postop management to neurosurgery. 2. Neck pain. Will cont aggressive pain control and monito r closely. 3. Elevated blood pressure, possibly re active to pain. No previous hx of HTN. Start on BB. We will cont pain control. Monitor. Plan of Care No Data Provided for This Section Social History Social History Date Source Social History TypeResponse 07/29/2016 [facility] Substance Abuse Use: None. Alcohol Past Smoking Status Never smoker; Ready to change: No; Carleen rns about tobacco use in household: No; Exposure to Tobacco Smoke None; Cigarette Smoking Last 365 Days No; Reg Smoking Cessation Counseling No Family History No Data Provided for This Section Advance Directives No Data Provided for This Section Functional Status No Data Provided for This Section
[2020-07-27 07:55] LABS: Urine Blood NEGATIVE (NEG); Urine Glucose NEGATIVE (NEG); Urine Protein NEGATIVE (NEG); Urine Specific Gravity 1.025 (1.005-1.030)
[2020-07-27] MEDS ORDERED: HYDROCODONE/APAP 7.5/325 MG TAB ONE (08:13)
--- NOTE | 2020-07-27 09:09 | RAD REPORT ---
EXAM DESCRIPTION: US - Scrotum Testicles - 07/27/2020 7:55 am CLINICAL HISTORY: Right groin pain Testicular pain COMPARISON: No comparisons FINDINGS: The right testicle 4.9 x 3.6 x 2.3 cm. No intratesticular masses or evidence of testicular torsion. The left testicle 4.2 x 2.9 x 2.2 cm. No intratesticular masses or evidence of testicular torsion. Mi ld dilatation of the rete testes noted. Both epididymides are normal in size and appearance. No pathologic fluid collections. Left varicocele is noted, mild IMPRESSION: No worrisome intratesticular mass or testicular torsion. Mild left varicocele.
--- NOTE | 2020-07-27 09:20 | RAD REPORT ---
EXAM DESCRIPTION: CTAbdomen Pelvis W Contrast - 07/27/2020 9:08 am CLINICAL HISTORY: Abdominal pain. RLQ/Right groin pain COMPARISON: No comparisons TECHNIQUE: Biphasic CT imaging of the abdomen and pelvis was performed with 100 ml non-ionic IV cont rast. All CT scans are performed using dose optimization technique as appropriate and may include automated exposure control or mA/KV adjustment according to patient size. FINDINGS: The lung bases are clear. The liver, spleen, pancreas, adrenal glands and kidneys are within normal limits. 19 mm cyst left kid katie. No bowel obstruction, free air, free fluid or abscess. The appendix is normal. Moderate stool throug hout the colon. No evidence of significant lymphadenopathy. Moderate lumbar degenerative changes. Postsurgical clips are seen left inguinal region. Small fat containing right inguinal hernia. IMPRESSION: Small fat containing right inguinal hernia. Normal appendix. Moderate stool is present throughout the colon.
--- NOTE | 2020-07-27 09:48 | ER ---
Nurse's Notes [facility] Name: Milo Lynn Age: 59 yrs Sex: Male : 1960 Arrival Date: 07/27/2020 Time: 06:21 Bed 5 Private MD: Diagnosis: Right groin pain/strain Presentation: 07/27 06:24 Acuity: MARI 3 sg 06:41 Chief complaint: Patient states: INGUINAL PAIN ON THE RIGHT SIDE FOR ABOUT A WEEK. WOKE rv UP TODAY WITH SO MUCH PAIN. IT FELT LIKE THERE IS PRESSURE INSIDE THAT MOVES UP TO MY STOMACH AND DOWN TO MY LEG, WITH NAUSEA. DENIES CHANGES IN URINE, CONSTIPATION, OR DISCHARGES. WITH HISTORY OF INGUINAL HERNIA REPAIR. Coronavirus screen: Client denies travel out of the [place] in the last 14 days. Ebola Screen: No symptoms or risks identified at this time. Initial Sepsis Screen: Does the patient meet any 2 criteria? No. Patient's initial sepsis screen is negative. Does the patient have a suspected source of infection? No. Patient's initial sepsis screen is negative. Risk Assessment: Do you want to hurt yourself or someone else? Patient reports no desire to harm self or others. Onset of symptoms was July 27, 2020 at 05:00. 06:41 Method Of Arrival: Ambulatory rv Triage Assessment: 06:41 General: Appears comfortable, Behavior is calm, cooperative. Pain: Complains of pain in rv right femoral area Pain radiates to right lower quadrant and right quadriceps. EENT: No signs and/or symptoms were reported regarding the EENT system. Neuro: Level of Consciousness is awake, alert, obeys commands, Oriented to person, place, time, situation. Cardiovascular: Patient's skin is warm and dry. Respiratory: Airway is patent Respiratory effort is even, unlabored, Breath sounds are clear bilaterally. Derm: Skin is intact. Historical: - Allergies: 06:24 No Known Allergies; sg - PSHx: 06:24 C4, 5, 6 fusion; sg - Immunization history:: Adult Immunizations up to date. - Social history:: Smoking status: Patient denies any tobacco usage or history of. Screenin:46 Abuse screen: Denies threats or abuse. Denies injuries from another. Nutritional rv screening: No deficits noted. Tuberculosis screening: No symptoms or risk factors identified. Fall Risk None identified. Assessment: 07:25 General: Appears in no apparent distress. comfortable, Behavior is calm, cooperative, em appropriate for age, Denies fever. Pain: Complains of pain in pelvis Pain radiates to right lower quadrant and medial aspect of right thigh Pain currently is 6 out of 10 on a pain scale. at worst was 10 out of 10 on a pain scale. Pain began several weeks ago. Neuro: Level of Consciousness is awake, alert, obeys commands, Oriented to person, place, time, situation, Appropriate for age. Cardiovascular: Capillary refill < 3 seconds Patient's skin is warm and dry. Respiratory: Airway is patent Respiratory effort is even, unlabored, Respiratory pattern is regular, symmetrical. GI: Patient currently denies nausea. : Reports pain testicle, Denies burning with urination, discharge. Derm: Skin is intact, is healthy with good turgor, Skin is pink, warm \T\ dry. Musculoskeletal: Capillary refill < 3 seconds, Range of motion: intact in all extremities. 09:34 Reassessment: Patient appears in no apparent distress at this time. Patient and/or em family updated on plan of care and expected duration. Pain level reassessed. Patient is alert, oriented x 3, equal unlabored respirations, skin warm/dry/pink. Patient states feeling better. Patient states symptoms have improved. 09:52 Reassessment: Dr. Vela at bedside. em 10:00 Reassessment: pt request something else for pain, states tramadol makes pt drowsy. em Vital Signs: 06:41 BP 133 / 74; Pulse 66; Resp 16; Temp 98.4; Pulse Ox 100% ; Weight 108.86 kg; Height 6 rv ft. 2 in. (187.96 cm); Pain 8/10; 08:01 BP 142 / 78; Pulse 58; Resp 18; Pulse Ox 100% on R/A; Pain 6/10; em 09:33 BP 131 / 82; Pulse 57; Resp 18; Pulse Ox 100% on R/A; Pain 4/10; em 06:41 Body Mass Index 30.81 (108.86 kg, 187.96 cm) rv ED Course: 06:21 Patient arrived in ED. cl3 06:24 Triage completed. sg 06:24 Arm band placed on. sg 06:41 Lonnie, Roge, RN is Primary Nurse. rv 06:46 Patient has correct armband on for positive identification. Bed in low position. Call rv light in reach. Side rails up X 1. Pulse ox on. NIBP on. 07:11 Kip Vela MD is Attending Physician. kdr 09:20 Inserted saline lock: 22 gauge in right antecubital area, using aseptic technique. em ,using aseptic technique. inserted by TYLER Hines. 09:46 Simeon Pearce MD is Referral Physician. kdr 10:00 No provider procedures requiring assistance completed. IV discontinued, intact, em bleeding controlled, No redness/swelling at site. Pressure dressing applied. Administered Medications: 08:01 Drug: [place] (7.5 mg-325 mg) 1 tabs Route: PO; em 09:34 Follow up: Response: No adverse reaction; Marked relief of symptoms; Pain is decreased; em RASS: Alert and Calm (0) Outcome: 09:48 Discharge ordered by . kdr 10:24 Discharged to home ambulatory. em 10:24 Condition: stable 10:24 Discharge instructions given to patient, Instructed on discharge instructions, follow up and referral plans. no drinking with medication, no driving heavy equipment, medication usage, Demonstrated understanding of instructions, follow-up care, medications, Prescriptions given X 1. 10:24 Patient left the ED. em Signatures: Dakota Mercer RN RN sg Rittger, Kevin, MD MD [facility] Chepe Kirk RN RN em Vicente, Ronaldo, RN RN rv Lewis, Charde cl3
--- NOTE | 2020-07-27 09:49 | EDPHYS ---
Physician Documentation [facility] Name: Milo Lynn Age: 59 yrs Sex: Male : 1960 Arrival Date: 07/27/2020 Time: 06:21 Bed 5 Private MD: ED Physician Kip Vela HPI: 07/27 08:01 This 59 yrs old Black Male presents to ER via Ambulatory with complaints of Groin Pain. kdr 08:01 The patient presents with scrotal pain, of the right side, without swelling, without kdr erythema, tenderness, Right groin and suprapubic pain. Onset: The symptoms/episode began/occurred gradually, 1 week(s) ago. Modifying factors: The symptoms are alleviated by remaining still, supine position, the symptoms are aggravated by movement, walking. Associated signs and symptoms: Pertinent positives: nausea, Occasional. Severity of symptoms: At their worst the symptoms were mild, moderate, just prior to arrival, in the emergency department the symptoms are unchanged. The patient has not experienced similar symptoms in the past. The patient has not recently seen a physician. Historical: - Allergies: 06:24 No Known Allergies; sg - PSHx: 06:24 C4, 5, 6 fusion; sg - Immunization history:: Adult Immunizations up to date. - Social history:: Smoking status: Patient denies any tobacco usage or history of. ROS: 08:01 Constitutional: Negative for fever, chills, and weight loss, Eyes: Negative for injury, kdr pain, redness, and discharge, ENT: Negative for injury, pain, and discharge, Neck: Negative for injury, pain, and swelling, Cardiovascular: Negative for chest pain, palpitations, and edema, Respiratory: Negative for shortness of breath, cough, wheezing, and pleuritic chest pain, Abdomen/GI: Negative for abdominal pain, nausea, vomiting, diarrhea, and constipation, Back: Negative for injury and pain, MS/Extremity: Negative for injury and deformity, Skin: Negative for injury, rash, and discoloration, Neuro: Negative for headache, weakness, numbness, tingling, and seizure activity. Psych: Negative for depression, anxiety, suicide ideation, homicidal ideation, and hallucinations, Allergy/Immunology: Negative for hives, rash, and allergies, Endocrine: Negative for neck swelling, polydipsia, polyuria, polyphagia, and marked weight changes, Hematologic/Lymphatic: Negative for swollen nodes, abnormal bleeding, and unusual bruising. 08:01 : Positive for testicular pain of the right testicle, Negative for urinary symptoms, urinary frequency, small amounts, hematuria, burning with urination. Exam: 08:01 Constitutional: This is a well developed, well nourished patient who is awake, alert, kdr and in no acute distress. Head/Face: Normocephalic, atraumatic. 08:01 : CVA tenderness, is absent, Male external genitalia: normal, tenderness, is palpated in the right inguinal area, that is mild. Vital Signs: 06:41 BP 133 / 74; Pulse 66; Resp 16; Temp 98.4; Pulse Ox 100% ; Weight 108.86 kg; Height 6 rv ft. 2 in. (187.96 cm); Pain 8/10; 08:01 BP 142 / 78; Pulse 58; Resp 18; Pulse Ox 100% on R/A; Pain 6/10; em 09:33 BP 131 / 82; Pulse 57; Resp 18; Pulse Ox 100% on R/A; Pain 4/10; em 06:41 Body Mass Index 30.81 (108.86 kg, 187.96 cm) rv MDM: 08:01 Data reviewed: vital signs, nurses notes, lab test result(s), radiologic studies. kdr Counseling: I had a detailed discussion with the patient and/or guardian regarding: the historical points, exam findings, and any diagnostic results supporting the discharge/admit diagnosis, lab results, radiology results, the need for outpatient follow up. 09:48 Patient medically screened. [facility] 07/27 06:34 Order name: Urine Dipstick--Ancillary (enter results) 07/27 07:56 Order name: Urine Dipstick-Ancillary; Complete Time: 08:44 EDMS 07/27 07:20 Order name: US Scrotum Testicles kdr 07/27 08:44 Order name: CT Abd/Pelvis - IV Contrast Only kdr 07/27 08:44 Order name: Creatinine, Serum kdr 07/27 09:17 Order name: CREATININE WHOLE BLOOD; Complete Time: 09:45 EDMS 07/27 07:20 Order name: Urine Dipstick-Ancillary (obtain specimen); Complete Time: 07:29 kdr 07/27 09:10 Order name: US; Complete Time: 09:45 EDMS 07/27 09:21 Order name: CT; Complete Time: 09:45 EDMS Administered Medications: 08:01 Drug: [place] (7.5 mg-325 mg) 1 tabs Route: PO; em 09:34 Follow up: Response: No adverse reaction; Marked relief of symptoms; Pain is decreased; em RASS: Alert and Calm (0) Disposition: 07/27/20 09:48 Discharged to Home. Impression: Right groin pain/strain. - Condition is Stable. - Discharge Instructions: Inguinal Hernia, Adult, [id number], Abdominal Pain, Adult, [id number]. - Prescriptions for Tramadol 50 mg Oral Tablet - take 1 tablet by ORAL route every 8 hours as needed; 12 tablet. - Medication Reconciliation Form, Thank You Letter, Prescription Opioid Use, Work release form form. - Follow up: Private Physician; When: 2 - 3 days; Reason: If symptoms return, Further diagnostic work-up, Recheck today's complaints, Continuance of care, Re-evaluation by your physician. Follow up: Simeon Pearce MD; When: 2 - 3 days; Reason: If symptoms return, Further diagnostic work-up, Recheck today's complaints, Continuance of care, Re-evaluation by your physician. - Problem is an acute exacerbation. - Symptoms have improved. Signatures: Dispatcher [employer] EDTX Dakota Mercer RN RN Kip Vela MD MD [facility] Chepe Kirk RN RN em Corrections: (The following items were deleted from the chart) 10:24 09:48 07/27/2020 09:48 Discharged to Home. Impression: Right groin pain/strain. em Condition is Stable. Forms are Medication Reconciliation Form, Thank You Letter, Antibiotic Education, Prescription Opioid Use. Follow up: Private Physician; When: 2 - 3 days; Reason: If symptoms return, Further diagnostic work-up, Recheck today's complaints, Continuance of care, Re-evaluation by your physician. Follow up: Dr. Simeon Pearce; When: 2 - 3 days; Reason: If symptoms return, Further diagnostic work-up, Recheck today's complaints, Continuance of care, Re-evaluation by your physician. Problem is an acute exacerbation. Symptoms have improved. kdr
[2020-07-27 10:35] VITALS: TEMP 98.4; O2SAT 100
[2020-07-27 10:39] VITALS: BP 131/82
== END 2020-07-27 10:24 | disposition home or self-care (01) ==
LOC: ER 06:20
DX: S39.011A Strain of muscle, fascia and tendon of abdomen, initial encounter (principal)
CPT/HCPCS: 82565; 81003; 74177; 76870; 99284; Q9967